=== PATIENT | male | born 1955 | race Caucasian/White ===

== ENCOUNTER 2021-08-15 03:00 | Emergency (ER) | payer MEDICAID, SELFPAY ==
[2021-08-15 03:01] VITALS: BP 178/94; PULSE 113; RESP 20; TEMP 36.7; O2SAT 94; BMI 29.7
--- NOTE | 2021-08-15 03:28 | XR_ITS ---
PROCEDURE INFORMATION: Exam: XR Chest Exam date and time: 08/15/2021 3:28 AM Age: 65 years old Clinical indication: Patient HX: PT got into coughing fit and caused pain down left leg; Additional info: Cough TECHNIQUE: Imaging protocol: XR of the chest. Views: 2 views. COMPARISON: No relevant prior studies available. FINDINGS: Lungs: There are chronic parenchymal changes identified within both lung tirado, suggesting pulmonary emphysema. No consolidation. Pleural spaces: Unremarkable. No pleural effusion. No pneumothorax. Heart/Mediastinum: Unremarkable. No cardiomegaly. Bones/joints: Mild degenerative changes of the thoracic spine and shoulders. IMPRESSION: No evidence of acute intrathoracic disease.
--- NOTE | 2021-08-15 03:28 | XR_ITS ---
PROCEDURE INFORMATION: Exam: XR Left Hip Exam date and time: 08/15/2021 3:28 AM Age: 65 years old Clinical indication: Hip pain; Left hip; Patient HX: Pain and numbness down lateral part of left leg for 3 days after having a coughing fit TECHNIQUE: Imaging protocol: XR Left hip. Views: 2 or 3 views hip with pelvis when performed. COMPARISON: No relevant prior studies available. FINDINGS: Bones/joints: Unremarkable. No acute fracture. Soft tissues: Unremarkable. IMPRESSION: No acute findings.
[2021-08-15 03:47] LABS: Coronavirus 19, PCR Not Detected (NotDetected); Influenza B, PCR Not Detected (NotDetected); Microscopic, Urine URINE MICROSCOPIC (MICROSCOPIC)
[2021-08-15 03:48] LABS: Basophils % 0.5 % (0.1-2.0); Eosinophils % 0.5 % (0.1-12.0); Hematocrit 48.9 % (42.0-52.0); Hemoglobin 16.8 g/dL (14.1-18.0); Lymphocytes # 0.9 K/mm3 (0.7-4.5); Lymphocytes % 17.1 % (10-50); Mean Corpuscular HGB Conc 34.4 g/dL (31.8-35.4); Mean Corpuscular Hemoglobin 30.8 pg (27.0-31.2); Mean Corpuscular Volume 89.7 fl (80-94); Mean Platelet Volume 8.8 fl (7.4-10.4); Monocytes # 0.3 K/mm3 (0.1-1.0); Monocytes % 5.9 % (1.7-9.3); Neutrophils # 4.1 K/mm3 (1.8-7.8); Neutrophils % 76.1 % (37.0-80.0); Platelet Count 156 K/mm3 (142-424); Red Blood Count 5.45 M/mm3 (4.60-6.20); Red Cell Distribution Width 13.7 % (11.5-17.5); White Blood Count 5.4 K/mm3 (4.8-10.8)
--- NOTE | 2021-08-15 03:52 | HMH.EDBACK ---
ED Disposition Clinical Impression: Flu, Lumbar radicular pain COPD (chronic obstructive pulmonary disease) Qualifiers: COPD type: unspecified COPD Qualified Code(s): J44.9 - Chronic obstructive pulmonary disease, unspecified Disposition: Home, Self-Care Condition on Discharge: Good Instructions: DI for Lumbar Radiculopathy Additional Instructions: use meds and call pcp for follow up Prescriptions: predniSONE [Prednisone 20mg Tab] 20 mg PO BID #10 tab Transmission Status: Pending to [facility] # Oseltamivir Phosphate [Tamiflu 75mg Capsule] 75 mg PO BID #10 cap Transmission Status: Pending to [facility] # Referrals: Provider,Referral, [Primary Care Provider] - - Critical Care Critical Care Time: No Attestation: On 08/15/21, the high probability of a clinically significant, sudden or life threatening deterioration of the following system(s) required my full and direct attention, intervention and personal management. The time I documented below is in addition to time spent performing reported procedures but includes the following listed in this critical care notation. Medical Decision Making - Medical Records Medical records reviewed: Yes: I reviewed the patient's medical records. - Berry Inquiry Pt receiving controlled substance: No Vital Signs: 08/15/21 03:01 Temperature 98.0 F Temperature Source Oral Pulse Rate [Apical] 113 H Respiratory Rate 20 Blood Pressure [Right Arm] 178/94 H Blood Pressure Mean [Right Arm] 122 Blood Pressure Source [Right Arm] Automatic Cuff Blood Pressure Position [Right Arm] Sitting 02 Sat by Pulse Oximetry 94 L Oxygen Delivery Method Room Air - Lab Data Lab results reviewed: Yes: I reviewed the patient's lab results. Lab Results 08/15/21 03:35: WBC 5.4, RBC 5.45, Hgb 16.8, Hct 48.9, MCV 89.7, MCH 30.8, MCHC 34.4, RDW 13.7, Plt Count 156, MPV 8.8, Neut % (Auto) 76.1, Lymph % (Auto) 17.1, Payne % (Auto) 5.9, Eos % (Auto) 0.5, Baso % (Auto) 0.5, Neut # (Auto) 4.1, Lymph # (Auto) 0.9, Payne # (Auto) 0.3, Eos # (Auto) 0.0, Baso # (Auto) 0.0, ESR 17 08/15/21 03:35: Sodium 135 L, Potassium 3.9, Chloride 101, Carbon Dioxide 27, Anion Gap 10.9, BUN 11, Creatinine 0.60 L, Estimated Creat Clear 90, Estimated GFR 135, Est GFR ( Amer) 164, Glucose 163 H, Calcium 9.6, Total Bilirubin 0.5, AST 58, ALT 53, Alkaline Phosphatase 51, C-Reactive Protein 6.9 H, Total Protein 7.6, Albumin 4.5, Globulin 3.1, Albumin/Globulin Ratio 1.5, Procalcitonin 0.083 08/15/21 03:40: Urine Color Yellow, Urine Appearance Clear, Urine pH 7.0, Ur Specific [place]on 1.020, Urine Protein 1+, Urine Glucose (UA) Negative, Urine Ketones 2+, Urine Blood Negative, Urine Nitrate Negative, Urine Bilirubin Negative, Urine Urobilinogen 0.2, Ur Leukocyte Esterase Negative, Urine WBC Occasional, Ur Squamous Epith Cells Occasional, Urine Bacteria Trace 08/15/21 03:40: SARS-CoV-2 (PCR) Not detected, Influenza A Untype (PCR) Detected A, Influenza Type B (PCR) Not detected Result diagrams: 08/15/21 03:35 08/15/21 03:35 Orders (Tests/Meds): ED MEDICATIONS Discontinued Medications Generic Name Dose Route Start Last Admin Trade Name Freq PRN Reason Stop Dose Admin Ketorolac Tromethamine 30 mg 08/15/21 03:52 08/15/21 03:58 Ketorolac 30mg/Ml Vial IV 08/15/21 03:53 30 mg ONCE ONE Administration Methocarbamol 500 mg 08/15/21 09:00 Methocarbamol 500mg Tablet PO 09/14/21 08:59 BID FORD Methocarbamol 500 mg 08/15/21 05:17 08/15/21 05:18 Methocarbamol 500mg Tablet PO 08/15/21 05:18 500 mg ONCE STA Administration Methylprednisolone Sodium Succinate 125 mg 08/15/21 03:52 08/15/21 03:58 Methylprednisolone Sod Succ 125mg Vial IV 08/15/21 03:53 125 mg ONCE ONE Administration - Radiology Data #1 Image(s): Chest, Pelvis, Hip Image Reviewed: Yes I have reviewed radiologist's interpretation Preliminary Findings: No Fracture Seen
--- NOTE | 2021-08-15 03:53 | CT_ITS ---
PROCEDURE INFORMATION: Exam: CT Lumbar Spine Without Contrast Exam date and time: 08/15/2021 3:53 AM Age: 65 years old Clinical indication: Patient HX: Low back pain after coughing a few days ago TECHNIQUE: Imaging protocol: Computed tomography images of the lumbar spine without contrast. Radiation optimization: All CT scans at this facility use at least one of these dose optimization techniques: automated exposure control; mA and/or kV adjustment per patient size (includes targeted exams where dose is matched to clinical indication); or iterative reconstruction. COMPARISON: CR XR HIP LT 2-3V W/PELVIS 08/15/2021 3:37 AM FINDINGS: Vertebrae: No acute fracture. Normal alignment. Anterior osteophyte formation is noted at L1-L2 and L3-L4. L1-L2: No significant disc protrusion. No spinal canal stenosis. No significant neural foraminal narrowing. L2-L3: No significant disc protrusion. No spinal canal stenosis. No significant neural foraminal narrowing. L3-L4: No significant disc protrusion. There is mild bilateral facet degeneration. Ligamentum flavum hypertrophy is identified. There is mild central canal stenosis. No significant neural foraminal narrowing. L4-L5: No significant disc protrusion. Posterior annular bulging is noted. There is mild bilateral facet degeneration. Ligamentum flavum hypertrophy is identified. There is moderate central canal stenosis. There is moderate central canal stenosis. No significant neural foraminal narrowing. L5-S1: No significant disc protrusion. Mild bilateral facet degeneration. No evidence of central canal stenosis. No significant neural foraminal narrowing. Soft tissues: Arterial atheromatous calcifications are noted. No evidence of paraspinal mass. IMPRESSION: Osteoarthritis of the lumbar spine, as described. There is mild central canal stenosis at L3-L4 and moderate central canal stenosis at L4-L5.
--- NOTE | 2021-08-15 04:03 | CT_ITS ---
PROCEDURE INFORMATION: Exam: CT Thoracic Spine Without Contrast Exam date and time: 08/15/2021 4:03 AM Age: 65 years old Clinical indication: Pain in thoracic spine; Patient HX: Back pain after coughing a few days ago TECHNIQUE: Imaging protocol: Computed tomography images of the thoracic spine without contrast. Radiation optimization: All CT scans at this facility use at least one of these dose optimization techniques: automated exposure control; mA and/or kV adjustment per patient size (includes targeted exams where dose is matched to clinical indication); or iterative reconstruction. COMPARISON: CR XR CHEST 2V 08/15/2021 3:34 AM FINDINGS: Vertebrae: No acute fracture. Normal alignment. Discs/Spinal canal/Neural foramina: There is a pattern of mild diffuse degenerative changes noted throughout the thoracic spine. No evidence of central canal stenosis. Exit foramina are patent throughout the thoracic spine. Soft tissues: Arterial atheromatous calcifications are noted. No evidence of paraspinal mass. Emphysematous changes are noted within both lung tirado. IMPRESSION: No evidence of acute fracture or malalignment. Mild diffuse degenerative changes are noted. Pulmonary emphysema is identified.
[2021-08-15 04:07] LABS: Appearance,Urine CLEAR (Clear); Bilirubin,Urine Negative (Negative); Blood, Urine Negative (Negative); Color,Urine YELLOW (Yellow); Glucose,Urine (UA) Negative (Negative); Ketones,Urine 2+ (Negative); Leukocyte Esterase,Urine Negative (Negative); Nitrate,Urine Negative (Negative); Protein,Urine 1+ (Negative); Urobilinogen,Urine 0.2 EU/dl (0.2)
[2021-08-15 04:10] LABS: Influenza A, PCR Detected (NotDetected)
[2021-08-15 04:11] LABS: Alanine Aminotransferase 53 U/L (12-78); Albumin Level 4.5 g/dl (3.5-5.0); Albumin/Globulin Ratio 1.5 (1.1-1.8); Alkaline Phosphatase 51 U/L (38-126); Anion Gap 10.9 mEq/L (5-15); Aspartate Amino Transferase 58 U/L (17-59); Bilirubin,Total 0.5 mg/dl (0.2-1.3); Blood Urea Nitrogen 11 mg/dl (9-20); Calcium 9.6 mg/dl (8.4-10.2); Carbon Dioxide 27 mmol/L (22.0-30.0); Chloride 101 mmol/L (98-107); Creatinine Clearance Estimated 90 mL/min (50-200); Estimated Glomerular Filt Rate 135 ml/min (>60); GFR (African American) 164 ML/MIN (>60); Globulin 3.1 g/dL (1.3-3.2); Glucose 163 mg/dl (74-100); Potassium 3.9 mmoL/L (3.5-5.1); Sodium 135 mmol/L (136-145); Total Protein,Serum 7.6 g/dl (6.3-8.2)
[2021-08-15 04:16] LABS: C-Reactive Protein 6.9 mg/L (0-4)
[2021-08-15 04:17] LABS: Bacteria,Urine Trace /lpf; Squamous Epithelial Cell,Urine Occasional #/hpf (0-5); WBC,Urine Occasional #/hpf (0-3)
[2021-08-15 04:19] LABS: Erythrocyte Sedimentation Rate 17 mm/hr (0-20)
[2021-08-15 04:30] LABS: Procalcitonin 0.083 ng/mL (0.0-2.0)
[2021-08-15 05:53] VITALS: BP 144/94; PULSE 110; RESP 18; TEMP 36.7; O2SAT 98
== END 2021-08-15 05:56 | disposition home or self-care (01) ==
PROVIDERS: Emergency Provider Emergency Medicine
DX: M54.16 Radiculopathy, lumbar region (principal); J44.9 Chronic obstructive pulmonary disease, unspecified; J10.1 Influenza due to other identified influenza virus with other respiratory manifestations
CPT/HCPCS: 71046; 72128; 72131; 73502; 80053; 81001; 84145; 85025; 85651; 86140; 96372; 96374; 99283; C9803; U0003; U0005

== ENCOUNTER → 2021-08-29 19:15 | Outpatient (CLI) | payer MEDICAID, SELFPAY ==
[2021-08-29 19:34] LABS: Chol/HDL Ratio 4.1 (1-3.5); Cholesterol 186 mg/dl (140-200); HDL Cholesterol 45 mg/dl (40-60); Triglycerides 156 mg/dl (30-150); VLDL Cholesterol 31 mg/dL (0-40)
[2021-08-29 19:45] LABS: Direct LDL Cholesterol 119.15 mg/dL (100-129)
[2021-08-29 19:46] LABS: Hemoglobin A1C 6.3 % (4.0-6.0)
[2021-08-29 19:53] LABS: T4 (Thyroxine) 7.8 ug/dl (5.53-11.0)
[2021-08-29 19:54] LABS: 25-OH Vitamin D, Total 32.3 ng/mL (30-100)
[2021-08-29 20:07] LABS: Prostate Specific Ag Screen 9.1 ng/ml (0.0-4.0)
== END ==
PROVIDERS: Visit Provider Nurse Practitioner Family
DX: R73.09 Other abnormal glucose (principal); R53.83 Other fatigue; Z12.5 Encounter for screening for malignant neoplasm of prostate; E66.3 Overweight; Z68.29 Body mass index [BMI] 29.0-29.9, adult
CPT/HCPCS: 80061; 82306; 83036; 84436; 84443; G0103

== ENCOUNTER → 2021-09-13 07:42 | Outpatient (CLI) | payer MEDICAID, SELFPAY ==
--- NOTE | 2021-09-13 07:45 | US_ITS ---
APPROVED REPORT Exam Type: Lower Extremity Segmental Pressures Cripple Cutter: Rina Bazan, MECH[employer]ICAL PRODUCT ENGINEER Indications Current Smoker Risk Factors Diabetes Pressures/Indices Right Indices Left Indices Brachial 136.00 mmHg Brachial 142.00 mmHg Low Thigh 140.00 mmHg 0.99 Low Thigh 96.00 mmHg 0.68 Calf 147.00 mmHg 1.04 Calf 99.00 mmHg 0.70 Ankle(PT) 149.00 mmHg 1.05 Ankle(PT) 96.00 mmHg 0.68 Ankle(DP) 141.00 mmHg 0.99 Ankle(DP) 118.00 mmHg 0.83 Digit 101.00 mmHg 0.71 Digit 75.00 mmHg 0.53 Findings R MAURA 1.1 L MAURA 0.8 R TBI 0.7 L TBI 0.5 Diminished waveforms in the LLE and pulses. Conclusion R MAURA 1.1 L MAURA 0.8 R TBI 0.7 L TBI 0.5 Diminished waveforms in the LLE and pulses. Mild arterial disease left lower extremity. Electronically signed by : Kehinde Kim MD 09/13/2021 14:54:51
== END ==
PROVIDERS: PCP Nurse Practitioner Family; Visit Provider Urology
DX: R07.89 Other chest pain (principal); I73.9 Peripheral vascular disease, unspecified; Z72.0 Tobacco use
CPT/HCPCS: 93306; 93923

== ENCOUNTER 2021-10-02 08:46 | Day surgery (SDC) | payer MEDICAID, SELFPAY ==
[2021-10-02] VITALS (7 sets, daily range): BP systolic 111–157; BP diastolic 70–97; PULSE 74–90; RESP 18–20; TEMP 36.6; O2SAT 90–98; BMI 31.0
--- NOTE | 2021-10-02 07:05 | IR_ITS ---
APPROVED REPORT Patient Location: Outpatient [facility] Cutter: BRYSON Allen RT (R) PROCEDURES Catheter placed in the abdominal aorta Abdominal aortography Repositioning of the catheter in the abdominal aorta Bilateral iliofemoral runoff Catheter placement in the left popliteal artery Left popliteal artery selective angiogram Drug-coated balloon angioplasty to the left popliteal artery and left superficial femoral artery Post angioplasty left superficial femoral artery and left popliteal artery angiogram INDICATION [place] claudication class III, Abnormal MAURA, Occluded left superficial femoral artery Informed consent was obtained prior to the procedure. COMPLICATIONS NONE Estimated Blood Loss: LESS THAN 10 ML TECHNIQUE 1% lidocaine used anesthetize the right groin the right femoral artery was accessed via the sounder technique and a 4 Gambian sheath is placed in the right femoral artery. The pigtail catheter was placed in the abdominal aorta and abdominal aortography was performed. The catheter was then repositioned and bilateral iliofemoral runoff was performed. Following this therapeutic heparin was administered and the 4 Gambian sheath was exchanged for a 6 Gambian sheath followed by a rim catheter placed in the distal abdominal aorta and used to cannulate the left common iliac artery. An advantage wire was then advanced into the left superficial femoral artery. The short 6 Gambian sheath was exchanged for a long destination sheath. The wire was prolapsed and then used to push through the chronic occlusion and reenter the left popliteal artery. The 5 mm x 100 mm balloon was then advanced through the occlusion and the wire was removed and selective angiography was performed of the left popliteal artery. Following this the balloon was deployed at 10 nithin on 2 occasions to reduce the occlusion. Following this a 6 mm x 250 mm drug-coated balloon was deployed at 5 nithin for 3 minutes reducing the stenosis to less than 10%. Post angioplasty angiography demonstrated wide patency of the left superficial femoral artery with excellent inline flow into the popliteal artery. At the end of the procedure the apparatus was removed the groin was reprepped gloves were changed sheath was removed good hemostasis was achieved using Perclose device patient was transferred to the postop holding area in stable condition ANGIOGRAPHIC RESULTS Abdominal aorta is widely patent The bilateral common internal and external iliac arteries are widely patent The bilateral common femoral arteries are patent The bilateral profunda femoris arteries are patent The right superficial femoral artery is widely patent and has a distal eccentric 40% stenosis at the junction of the popliteal artery. The right popliteal artery is widely patent with three-vessel runoff below the knee on the right The left superficial femoral artery is patent in proximal segment and then occluded at mid segment and then reconstitutes in the mid popliteal artery via collaterals from the profundus. Below the knee there is three-vessel runoff IMPRESSION Chronically occluded left superficial femoral artery Successful drug-coated balloon angioplasty of the left popliteal artery extending into the left superficial femoral artery reducing the 100% occlusion to less than 10% PLAN 1. Xarelto 2.5 twice daily plus aspirin 81 mg daily to be started today 2. Immediate avoidance of all tobacco products 3. LDL less than 55 to be achieved with high intensity statin 4. Risk factor modification 5. Evaluation for ischemic heart disease given the severity of the peripheral artery disease Electronically signed by : Sohan Stephen MD 10/02/2021
[2021-10-02 09:29] LABS: Coronavirus 19, PCR Not Detected (NotDetected); Influenza A, PCR Not Detected (NotDetected); Influenza B, PCR Not Detected (NotDetected)
[2021-10-02 09:33] LABS: Basophils # 0.1 K/mm3 (0-0.2); Basophils % 1.9 % (0.1-2.0); Eosinophils # 0.2 K/mm3 (0.0-0.4); Eosinophils % 3.3 % (0.1-12.0); Hematocrit 51.8 % (42.0-52.0); Hemoglobin 16.8 g/dL (14.1-18.0); Lymphocytes # 2.9 K/mm3 (0.7-4.5); Lymphocytes % 40.1 % (10-50); Mean Corpuscular HGB Conc 32.4 g/dL (31.8-35.4); Mean Corpuscular Hemoglobin 31.3 pg (27.0-31.2); Mean Corpuscular Volume 96.5 fl (80-94); Mean Platelet Volume 8.4 fl (7.4-10.4); Monocytes # 0.5 K/mm3 (0.1-1.0); Monocytes % 6.8 % (1.7-9.3); Neutrophils # 3.5 K/mm3 (1.8-7.8); Neutrophils % 47.8 % (37.0-80.0); Platelet Count 214 K/mm3 (142-424); Red Blood Count 5.37 M/mm3 (4.60-6.20); Red Cell Distribution Width 14.4 % (11.5-17.5); White Blood Count 7.3 K/mm3 (4.8-10.8)
[2021-10-02 10:02] LABS: Hematocrit 51.3 % (42.0-52.0); Hemoglobin 16.5 g/dL (14.1-18.0)
[2021-10-02 11:44] LABS: Chloride 105 mmol/L (98-107); Sodium 136 mmol/L (136-145)
[2021-10-02 11:47] LABS: Blood Urea Nitrogen 13 mg/dl (9-20); Calcium 9.6 mg/dl (8.4-10.2); Carbon Dioxide 26 mmol/L (22.0-30.0); Creatinine Clearance Estimated 92 mL/min (50-200); Estimated Glomerular Filt Rate 97 ml/min (>60); GFR (African American) 117 ML/MIN (>60); Glucose 98 mg/dl (74-100)
[2021-10-02 13:46] LABS: CATHL Activated Clotting Time 263 SEC (74-125)
== END 2021-10-02 15:23 | disposition home or self-care (01) ==
PROVIDERS: Nurse Practitioner Family; PCP Nurse Practitioner Family; Visit Provider Internal Medicine
DX: Z79.01 Long term (current) use of anticoagulants (principal); I70.212 Atherosclerosis of native arteries of extremities with intermittent claudication, left leg; F17.210 Nicotine dependence, cigarettes, uncomplicated; J44.9 Chronic obstructive pulmonary disease, unspecified; I77.1 Stricture of artery; Z20.822 Contact with and (suspected) exposure to COVID-19
CPT/HCPCS: 37224; 80048; 85014; 85018; 85025; 85347; 99152; 99153; C1725; C1760; C1766; C1769; C1894; C9803; J1644; Q9966; U0003; U0005

== ENCOUNTER → 2021-11-01 11:00 | Outpatient (CLI) | payer MEDICAID, SELFPAY ==
[2021-11-02 11:29] LABS: PSA, Free 2.07 ng/mL; Prostate Specific Ag 9.7 ng/mL (0.0-4.0)
== END ==
PROVIDERS: Visit Provider Urology
DX: R97.20 Elevated prostate specific antigen [PSA] (principal)
CPT/HCPCS: 36415; 84153; 84154

== ENCOUNTER 2021-11-05 09:49 | Outpatient (RCR) | payer MEDICAID, SELFPAY | END 2021-11-05 09:55 | disposition home or self-care (01) | LOC: PT 09:49 | PROVIDERS: Visit Provider Internal Medicine | DX: I73.9 Peripheral vascular disease, unspecified (principal) | CPT/HCPCS: 93668 ==

== ENCOUNTER → 2021-11-22 12:48 | Outpatient (POV) | payer MEDICAID, MEDICARE, SELFPAY ==
[2021-11-22 13:06] VITALS: BP 146/87; PULSE 80; RESP 20; TEMP 36.2; O2SAT 96; BMI 30.8
--- NOTE | 2021-11-22 15:53 | HMH.PMCON ---
Assessment and Plan (1) Degenerative disc disease, lumbar Status: Acute Category: Medical Code(s): M51.36 - Other intervertebral disc degeneration, lumbar region (2) Sacroiliitis Status: Acute Category: Medical Code(s): M46.1 - Sacroiliitis, not elsewhere classified (3) Lumbar radicular pain Status: Acute Category: Medical Code(s): M54.16 - Radiculopathy, lumbar region - Assessment and plan all Dx Assessment and Plan for all problems:: PROCEDURE INFORMATION: Exam: CT Lumbar Spine Without Contrast Exam date and time: 08/15/2021 3:53 AM Age: 65 years old Clinical indication: Patient HX: Low back pain after coughing a few days ago TECHNIQUE: Imaging protocol: Computed tomography images of the lumbar spine without contrast. Radiation optimization: All CT scans at this facility use at least one of these dose optimization techniques: automated exposure control; mA and/or kV adjustment per patient size (includes targeted exams where dose is matched to clinical indication); or iterative reconstruction. COMPARISON: CR XR HIP LT 2-3V W/PELVIS 08/15/2021 3:37 AM FINDINGS: Vertebrae: No acute fracture. Normal alignment. Anterior osteophyte formation is noted at L1-L2 and L3-L4. L1-L2: No significant disc protrusion. No spinal canal stenosis. No significant neural foraminal narrowing. L2-L3: No significant disc protrusion. No spinal canal stenosis. No significant neural foraminal narrowing. L3-L4: No significant disc protrusion. There is mild bilateral facet degeneration. Ligamentum flavum hypertrophy is identified. There is mild central canal stenosis. No significant neural foraminal narrowing. L4-L5: No significant disc protrusion. Posterior annular bulging is noted. There is mild bilateral facet degeneration. Ligamentum flavum hypertrophy is identified. There is moderate central canal stenosis. There is moderate central canal stenosis. No significant neural foraminal narrowing. L5-S1: No significant disc protrusion. Mild bilateral facet degeneration. No evidence of central canal stenosis. No significant neural foraminal narrowing. Soft tissues: Arterial atheromatous calcifications are noted. No evidence of paraspinal mass. IMPRESSION: Osteoarthritis of the lumbar spine, as described. There is mild central canal stenosis at L3-L4 and moderate central canal stenosis at L4-L5. Patient is a pleasant 66-year-old male who presents today as a new patient. Patient has been having chronic low back pain for several years that has gotten worse in the last 2 to 3 years. Patient presents today with a low back pain that radiates to bilateral hips and thighs but does not cross his knees. Patient has positive for MIKE, Jaye's, compression, and distraction. For pain management, patient is not taking any pain medication right now other than Tylenol and Advil. Patient is also doing physical therapy that is helping some of his pain. We will schedule the patient for a bilateral SI injection. Risk and benefits of these procedures been discussed with the patient. Patient would like to proceed with this procedure. If patient does not get any relief from this procedure, we will consider doing a lumbar epidural steroid injection with epidurogram. Patient has been instructed to contact the clinic with any concerns before the next appointment. Dr. Thomason has reviewed this note and agrees with this plan of care. This note was dictated using voice recognition software and make contain errors or omissions. HPI - Data of Consult Patient: new to practice Consult date: 11/22/21 Requesting Physician: THOMPSON Sunshine - Consult Narrative Reason for consult: Back pain History of present illness: Mr. Smith is a 66 year old male who presents today as a new patient. Patient is referred by Chelsie Pinedo APRN. Th
== END ==
PROVIDERS: Visit Provider Student in an Organized Health Care Education/Training Program
DX: M51.16 Intervertebral disc disorders with radiculopathy, lumbar region (principal); M46.1 Sacroiliitis, not elsewhere classified
CPT/HCPCS: 99202; G0463

== ENCOUNTER 2021-11-30 13:34 | Day surgery (SDC) | payer MEDICAID, SELFPAY ==
[2021-11-30 13:49] VITALS: BP 144/81; BP 160/74; BP 162/75; PULSE 80; PULSE 93; PULSE 95; RESP 18; RESP 20; TEMP 36.2; O2SAT 95; O2SAT 96; O2SAT 98; BMI 29.7
--- NOTE | 2021-11-30 14:00 | P.PCN_ITS ---
- Procedure Date: 11/30/21 Time: 14:00 Anesthesiologist:: Dio Thomason MD Complications:: None Pre-procedure Diagnosis:: Sacroiliitis Post-procedure Diagnosis:: Same Indications for Procedure:: Patient is a pleasant 66-year-old white male who we are treating for bilateral hip pain. He is tender over both SI joints. He has a positive Susanne's test bilaterally. Is positive Arlene test bilaterally. He has positive SI joint compression test bilaterally. We will plan on bilateral SI joint injections under fluoroscopy today to help with pain symptoms. Procedure Details:: B/L SI joint injection under fluoroscopy Informed consent was obtained and the risks and benefits of the procedure was explained to the patient. The patient was taken to the procedure room and placed prone on the procedure table. The patient was prepped using ChloraPrep. The skin and subcutaneous tissues overlying the SI joints were anesthetized using lidocaine. I placed a 22-gauge needle first in the left SI joint and second in the right SI joint. Needle placement was confirmed with dye. After this we injected 5 mL bupivacaine 0.25% and Depo-Medrol 40 mg into each SI fred nt. Patient tolerated the procedure well with no complication. Plan and Disposition:: We will follow-up with him in 2 weeks. Will reevaluate his symptoms at that time.
[2021-11-30 14:05] VITALS: BP 149/81; PULSE 89; RESP 20; O2SAT 96
== END 2021-11-30 14:05 | disposition home or self-care (01) ==
LOC: SC.PAINP 13:35
PROVIDERS: PCP Nurse Practitioner Family; Visit Provider Anesthesiology
DX: M46.1 Sacroiliitis, not elsewhere classified (principal)
CPT/HCPCS: 27096; G0260; Q9966

== ENCOUNTER → 2022-03-19 14:33 | Outpatient (CLI) | payer MEDICARE, MEDICAID, SELFPAY ==
--- NOTE | 2022-03-19 14:41 | XR_ITS ---
FINAL REPORT CLINICAL HISTORY: knee pain FINDINGS: LEFT KNEE Three views were obtained. There is no acute fracture or dislocation. The joint spaces appear normal. No joint effusion is identified. No soft tissue abnormality is identified. IMPRESSION: No acute process. Reviewed, Interpreted and Dictated by Mayito Magana III, MD Transcribed by Jennifer Gillespie Authenticated and [facility]
== END ==
PROVIDERS: PCP Nurse Practitioner Family; Visit Provider Orthopaedic Surgery
DX: M25.562 Pain in left knee (principal)
CPT/HCPCS: 73564

== ENCOUNTER → 2022-04-23 08:03 | Outpatient (POV) | payer MEDICARE, SELFPAY | PROVIDERS: Visit Provider Dermatology | DX: Z00.00 Encounter for general adult medical examination without abnormal findings (principal) ==

== ENCOUNTER → 2022-04-23 09:25 | Outpatient (CLI) | payer MEDICARE, MEDICAID, SELFPAY ==
--- NOTE | 2022-04-23 09:25 | CT_ITS ---
FINAL REPORT CLINICAL HISTORY: PAD, claudication, FINDINGS: Thin section axial CT images of the abdomen, pelvis and lower extremities were obtained with contrast. Multiplanar reformatted images were also obtained and reviewed. ABDOMEN AND PELVIS: There is no abdominal aortic aneurysm or dissection. The celiac axis and proximal superior mesenteric artery are unremarkable. There is no renal artery stenosis. The inferior mesenteric artery is patent. There is mild stenoses in both common iliac arteries. The external iliac arteries are patent. The internal iliac arteries are patent. RIGHT LOWER EXTREMITY: There is mild stenosis of the proximal SFA. There is segmental occlusion of the distal SFA with reconstitution distally. The right popliteal artery is patent. There is occlusion of the distal for neural arteries. The anterior tibial and posterior tibial arteries are patent to the ankle. LEFT LOWER EXTREMITY: There is mild stenosis of the SFA. The left popliteal artery is patent. There is three-vessel runoff to the distal lower leg. OTHER FINDINGS: Note is made of gallstones. There is a less than 3 mm nonobstructing right renal stone. The appendix is normal. There is sigmoid diverticulosis without evidence of diverticulitis. IMPRESSION: Segmental occlusion of the distal right SFA. Occlusion of the distal right peroneal artery. Reviewed, Interpreted and Dictated by Mayito Magana III, MD Transcribed by Jennifer Gillespie Authenticated and [facility]
[2022-04-23 10:04] LABS: Blood Urea Nitrogen 13 mg/dl (9-20); Estimated Glomerular Filt Rate 97 ml/min (>60); GFR (African American) 117 ML/MIN (>60)
== END ==
PROVIDERS: PCP Nurse Practitioner Family; Visit Provider Physician Assistant
DX: I73.9 Peripheral vascular disease, unspecified (principal); J44.9 Chronic obstructive pulmonary disease, unspecified; R09.89 Other specified symptoms and signs involving the circulatory and respiratory systems; R20.0 Anesthesia of skin; Z72.0 Tobacco use
CPT/HCPCS: 36415; 75635; 82565; 84520; Q9967

== ENCOUNTER → 2022-06-04 07:57 | Outpatient (POV) | payer MEDICARE, SELFPAY | PROVIDERS: Visit Provider Dermatology | DX: Z00.00 Encounter for general adult medical examination without abnormal findings (principal) ==

== ENCOUNTER 2023-04-29 08:27 | Day surgery (SDC) | payer MEDICARE, MEDICAID, SELFPAY ==
[2023-04-29] VITALS (9 sets, daily range): BP systolic 125–178; BP diastolic 42–86; PULSE 68–93; RESP 15–19; TEMP 37; O2SAT 90–98; BMI 29.4
--- NOTE | 2023-04-29 07:03 | IR_ITS ---
APPROVED REPORT Patient Location: Outpatient PROCEDURES Pigtail catheter placement in the abdominal aorta Abdominal aortography Repositioning of the catheter abdominal aorta Bilateral iliofemoral runoff Bare-metal balloon mounted stent deployment to the left common iliac artery Bare-metal balloon mounted stent deployment to the right common iliac artery INDICATION Abnormal MAURA, Atherosclerosis of the bilateral common iliac arteries, [place] claudication class III Informed consent was obtained prior to the procedure. COMPLICATIONS None Estimated Blood Loss: Less than 10 ml TECHNIQUE 1% lidocaine used anesthetize right groin the right pulm artery was accessed via the center technique and a 5 Portuguese sheath is placed in the right femoral artery. A pigtail catheter was advanced to the abdominal aorta and abdominal aortography was performed. The catheter was then repositioned and bilateral iliofemoral runoff was performed. Following this a rim catheter was advanced to the distal abdominal aorta and used to cannulate the left common iliac artery. A long advantage wire was then advanced into the left superficial femoral artery under fluoroscopic guidance. The 5 Portuguese sheath was exchanged for a 45 cm destination sheath. Heparin was ministered given therapeutic ACT. An 8 mm x 57 mm balloon mounted bare-metal stent was deployed at 12 nithin in the distal left common iliac artery. An additional 8 mm x 27 mm balloon mounted bare-metal stent was then deployed proximal to this overlapping the first stent at 12 nithin completely reducing the stenosis to 0%. The apparatus was removed and an additional 8 mm x 57 mm balloon mounted bare-metal stent was deployed at 10 nithin in the right common iliac artery reducing the stenosis. Excellent angiographic results were obtained. At the end of procedure the apparatus was removed the groin was reprepped gloves were changed sheath was removed and hemostasis was achieved using Perclose device patient was transferred to the postop putting in stable condition ANGIOGRAPHIC RESULTS Distal abdominal aorta is widely patent Right common iliac artery has a concentric 80% stenosis. Right internal iliac arteries patent as is the right external iliac artery Right profunda femoris artery is widely patent right common femoral arteries patent. Right superficial femoral artery is widely patent. The proximal to mid popliteal artery is occluded and reconstitutes in the mid popliteal artery and then provides three-vessel runoff below the knee on the right side Left common iliac artery has a calcified 70% stenosis followed by mid vessel eccentric 50% stenosis. The left internal and external iliac arteries are patent as is the left common femoral artery. The left profunda femoris artery is patent. The left superficial femoral artery is mild atheromatous plaque and is patent into the popliteal artery where there are 30 to 40% stenoses. 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 Dual antiplatelet therapy for 1 month then convert to Xarelto 2.5 twice daily plus aspirin 81 mg daily 2. LDL less than 55 to be achieved with high intensity statin 3. Consider cardiac ischemic work-up if not already completed 4. Risk factor modification 5. For the time being I would like to treat the right popliteal artery occlusion medically. Should patient experience recalcitrant claudication only th
[2023-04-29 08:53] LABS: Basophils # 0.1 K/mm3 (0-0.2); Basophils % 0.9 % (0.1-2.0); Eosinophils # 0.2 K/mm3 (0.0-0.4); Eosinophils % 2.7 % (0.1-12.0); Hematocrit 54.2 % (42.0-52.0); Hemoglobin 17.4 g/dL (14.1-18.0); Lymphocytes % 37.9 % (10-50); Mean Corpuscular HGB Conc 32.1 g/dL (31.8-35.4); Mean Corpuscular Hemoglobin 30.3 pg (27.0-31.2); Mean Corpuscular Volume 94.6 fl (80-94); Mean Platelet Volume 8.5 fl (7.4-10.4); Monocytes # 0.6 K/mm3 (0.1-1.0); Monocytes % 7.5 % (1.7-9.3); Neutrophils % 50.9 % (37.0-80.0); Platelet Count 158 K/mm3 (142-424); Red Blood Count 5.73 M/mm3 (4.60-6.20); Red Cell Distribution Width 13.9 % (11.5-17.5); White Blood Count 7.8 K/mm3 (4.8-10.8)
[2023-04-29 09:04] LABS: Blood Urea Nitrogen 12 mg/dl (9-20); Calcium 9.7 mg/dl (8.4-10.2); Carbon Dioxide 30 mmol/L (22.0-30.0); Chloride 102 mmol/L (98-107); Creatinine Clearance Estimated 86 mL/min (50-200); Estimated Glomerular Filt Rate 96 ml/min (>60); GFR (African American) 117 ML/MIN (>60); Glucose 108 mg/dl (74-100); Sodium 143 mmol/L (136-145)
[2023-04-29 13:37] LABS: CATHL Activated Clotting Time 293 SEC (74-125)
--- NOTE | 2023-04-29 14:57 | HMH.PHACL ---
PHA Machine Fancy Stitcher Discharge Med Outreach Coordinator: Aniket Smith has received discharge medication counseling on the following medications: ASPIRIN PLAVIX (NEW) XARELTO (NEW) LOSARTAN ATORVASTATIN PATIENT VERBALIZED UNDERSTANDING AND HAD NO QUESTIONS AT THIS TIME. -MICHAEL PRYOR
== END 2023-04-29 14:55 | disposition home or self-care (01) ==
PROVIDERS: PCP Nurse Practitioner Family; Visit Provider Internal Medicine
DX: I10 Essential (primary) hypertension (principal); J44.9 Chronic obstructive pulmonary disease, unspecified; F17.210 Nicotine dependence, cigarettes, uncomplicated; I70.213 Atherosclerosis of native arteries of extremities with intermittent claudication, bilateral legs; Z79.899 Other long term (current) drug therapy; I77.1 Stricture of artery
CPT/HCPCS: 37221; 80048; 85025; 85347; 99152; 99153; C1725; C1760; C1766; C1769; C1876; C1894; J1644; Q9967

== ENCOUNTER → 2023-05-15 07:10 | Outpatient (CLI) | payer MEDICARE, MEDICAID, SELFPAY ==
--- NOTE | 2023-05-15 | CA_ITS ---
APPROVED REPORT Exam: Pharmacologic Technologist: Lela Gordon, Ht: 5 ft 7 in Wt: 185 lbs BSA: 1.96 m2 HR: 82 bpm BP: 135/74 mmHg Rhythm: NSR Indications: SOA, CP Medical History Medical History: HTN, , Hyperlipidemia Medications: Aspirin,,,,, Losartan,,,,, HCTZ,,,,, XaRELTO,,,,, Lipitor,,,,, Plavix,,,,, Allergies: No known drug allergies Cardiac Risk Factors: HTN, Hyperlipidemia, Smoking Stress Test Details Test: LEXISCAN HR Resting HR: 82 bpm Max Heart Rate (APMHR): 153 bpm Max HR Achieved: 111 bpm Target HR (85% APMHR): 130 bpm % of APMHR: 73 Recovery HR: 97 bpm BP Resting BP: 135/74 mmHg Max BP: 138/66 mmHg Recovery BP: 138.0/66.0 mmHg ECG Resting ECG: NSR, cannot rule out old inferior WI Stress ECG: No significant ST changes Arrhythmia: None Clinical Exercise duration: 04:01 min Highest Stage Achieved: Exercise capacity: 1.0 METs Stress ECG Conclusion PT HAD SOA, AND LIGHTHEADEDNESS NO CP NO SIGNIFICANT ST CHANGES UNREMARKABLE LEXISCAN STRESS TEST MYOVIEW IMAGES REPORTED SEPARATELY Test Summary REST 02:37 . . 82 . 135/ 74 . . Stage 1 01:00 . . 105 . . . . Stage 2 01:00 . . 109 . 127/ 72 . . Stage 3 01:00 . . 106 . 124/ 67 . . Stage 4 01:00 . . 97 . 117/ 68 . . Stage 4 01:01 . . 97 . 117/ 68 . Stop exercise at 04:01 RECOVERY 01:00 . . 100 . 123/ 68 . . RECOVERY 02:00 . . 98 . 123/ 68 . . RECOVERY 03:00 . . 97 . 123/ 68 . . RECOVERY 04:00 . . 94 . 138/ 66 . . RECOVERY 04:14 . . 91 . 138/ 66 . . Electronically signed by : Lori Sanders, 05/19/2023 17:04:56
--- NOTE | 2023-05-15 07:10 | NM_ITS ---
APPROVED REPORT Exam: Nuclear Stress Test Indication: palpitations..fatigue..tobacco use..high cholesterol Patient Location: Outpatient Stress Tech: Lela Gordon [place] Tech:Caitlin Malave ARETHAKeturah RT(R)(N) Ht: 5 ft 7 in Wt: 185 lbs HR: 82 bpm BP: 135/74 mmHg BSA: 1.96 m2 Rhythm: NSR TID: 0.98 BMI: 28.9 History: palpitations..fatigue..tobacco use..high cholesterol Procedure: Patient received 0.4 mg of intravenous Lexiscan, resting heart rate 82 bpm, resting blood pressure 135/74 mmHg, with Lexiscan maximum heart rate achieved was 111 bpm which is 85 % of the maximum predicted heart rate and blood pressure was 138/66 mmHg. With Lexiscan, patient denied any complaint of chest pain. Cardiac Stress and Resting SPECT Images: Cardiac Stress and Resting SPECT images were obtained using technetium 99m Myoview 32.9 mCi stress and 10.37 mCi at rest. Raw images demonstrate significant overlap between the diaphragm and the inferior LV borders. This may affect the diagnostic interpretation of the study findings. Resting and stress imaging in supine position demonstrate a large-sized, moderate, fixed perfusion defect in the inferior LV wall. This is no longer visualized with prone stress imaging. Findings are suggestive of diaphragmatic attenuation. Gated imaging demonstrates low-normal global and regional LV systolic function. LVEF is calculated at 52%. Conclusion: Diaphragmatic attenuation is present. No definite evidence of fixed or reversible perfusion defects. Gated imaging demonstrates low-normal global and regional LV systolic function. LVEF is calculated at 52%. Electronically signed by : Lori Sanders, 05/19/2023 17:17:03
--- NOTE | 2023-05-15 07:32 | CA_ITS ---
APPROVED REPORT EXAM: Comprehensive 2D, Doppler, and color-flow Echocardiogram Fork Operator: Gretel Gayle RT(R) Ht: 5 ft 7 in Wt: 190lbs BSA: 1.98 BP: 116/82 mmHg Indications: SOA, CP, COPD, smoker, HTN, hyperlipidemia 2D Dimensions LVOT 1.81 cm (M/F) 1.5-2.5 LA Volume 21.70 mL LA Volume Index 10.96 mL/m2 (M/F) 16-34 M-Mode Dimensions RVDd 2.16 cm (0.9-2.6) LA Diam 2.90 cm (1.9-4.0) LVDd 4.36 cm (3.5-5.7) Ao Diam 2.48 cm (2.0-3.7) LVDs 3.53 cm (3.5-5.7) IVSd 0.83 cm (0.6-1.1) PWd 0.76 cm (0.6-1.1) EF (Teich) 39.50% FS 19.00% EDV (Teich) 85.80 mL ESV (Teich) 51.90 mL LV Diastology E Decel Time 197.00 (160-240 msec) E/A Ratio 0.8 MED E' 8.80 (< 7 cm/sec) E'/MED E' Ratio 8.05 (>14) LAT E' 10.60 (<10 cm/sec) E/LAT E' Ratio 6.68 (>14) Mitral Valve MV E Max Darian. 71.00 (40-130 cm/s) MV A Velocity 93.00 (40-130 cm/s) E/A Ratio 0.76 MV Decel. Time 197.00 (160-240 ms) MV PHT 58.00 ms Left Ventricle The left ventricle is normal size. The left ventricular systolic function is normal. The left ventricular ejection fraction is within the normal range. There is normal left ventricular wall thickness. There is normal LV segmental wall motion. The left ventricular diastolic function is normal. LVEF is 55%. Right Ventricle The right ventricle is normal size. The right ventricular systolic function is normal. Atria The left atrium size is normal. The right atrium size is normal. There is no Doppler evidence of interatrial shunt. Aortic Valve The aortic valve opens well. There is no aortic valvular stenosis. No aortic regurgitation is present. Mitral Valve The mitral valve is normal in structure. No evidence of mitral valve stenosis. Trace mitral regurgitation. Tricuspid Valve The tricuspid valve leaflets are thin and pliable. Trace tricuspid regurgitation. There is insufficient TR jet to estimate RVSP. Pulmonic Valve The pulmonary valve is normal in structure. Trace pulmonic regurgitation. Great Vessels The aortic root is normal in size. The ascending aorta is mildly dilated. The ascending aorta measures 4.1 cm. IVC is normal in size and collapses >50% with inspiration. Pericardium There is no pericardial effusion. Other Information Study Quality: Adequate Conclusion Normal biventricular systolic function. No significant valvular stenosis or regurgitation. Mildly dilated ascending aorta 4.1 cm. Electronically signed by : Lori Sanders, 05/16/2023 20:08:08
== END ==
PROVIDERS: PCP Nurse Practitioner Family; Visit Provider Nurse Practitioner Family
DX: I10 Essential (primary) hypertension (principal); I73.9 Peripheral vascular disease, unspecified; J44.9 Chronic obstructive pulmonary disease, unspecified; R06.00 Dyspnea, unspecified; Z72.0 Tobacco use; R07.9 Chest pain, unspecified; M25.562 Pain in left knee
CPT/HCPCS: 78452; 93017; 93306; A9502; J2785

== ENCOUNTER → 2023-05-16 09:16 | Outpatient (CLI) | payer MEDICARE, MEDICAID, SELFPAY ==
--- NOTE | 2023-05-16 09:24 | XR_ITS ---
FINAL REPORT CLINICAL HISTORY: knee pain left knee pain COMPARISON: 03/19/2022 FINDINGS: Left knee Two views were obtained. There is no acute fracture or dislocation. The joint spaces appear normal. No joint effusion is identified. No soft tissue abnormality is identified. IMPRESSION: No acute process. Reviewed, Interpreted and Dictated by Elias Olmstead MD Transcribed by eJnnifer Gillespie Authenticated and [facility]
== END ==
PROVIDERS: PCP Nurse Practitioner Family; Visit Provider Nurse Practitioner Family
DX: M25.562 Pain in left knee (principal)
CPT/HCPCS: 73560

== ENCOUNTER → 2023-06-10 08:46 | Outpatient (CLI) | payer MEDICARE, MEDICAID, SELFPAY ==
[2023-06-10 10:14] LABS: Hemoglobin A1C 5.9 % (4.0-6.0)
[2023-06-10 10:17] LABS: Alanine Aminotransferase 31 U/L (12-78); Albumin Level 4.6 g/dl (3.5-5.0); Alkaline Phosphatase 51 U/L (38-126); Anion Gap 14.6 mEq/L (5-15); Aspartate Amino Transferase 31 U/L (17-59); Bilirubin,Direct 0.1 mg/dl (0.0-0.4); Bilirubin,Indirect 0.6 mg/dL (0.0-0.9); Bilirubin,Total 0.7 mg/dl (0.2-1.3); Bilirubin,Unconjugated 0.6 mg/dL (0.0-1.1); Blood Urea Nitrogen 14 mg/dl (9-20); Calcium 9.7 mg/dl (8.4-10.2); Carbon Dioxide 26 mmol/L (22.0-30.0); Chloride 106 mmol/L (98-107); Chol/HDL Ratio 2.7 (1-3.5); Cholesterol 111 mg/dl (140-200); Estimated Glomerular Filt Rate 96 ml/min (>60); GFR (African American) 117 ML/MIN (>60); Glucose 102 mg/dl (74-100); HDL Cholesterol 41 mg/dl (40-60); Potassium 4.6 mmoL/L (3.5-5.1); Sodium 142 mmol/L (136-145); Total Protein,Serum 7.6 g/dl (6.3-8.2); Triglycerides 85 mg/dl (30-150); VLDL Cholesterol 17 mg/dL (0-40)
[2023-06-10 10:28] LABS: Direct LDL Cholesterol 58.49 mg/dL (100-129)
== END ==
PROVIDERS: PCP Nurse Practitioner Family; Visit Provider Physician Assistant
DX: E78.5 Hyperlipidemia, unspecified (principal); I73.9 Peripheral vascular disease, unspecified; J44.9 Chronic obstructive pulmonary disease, unspecified; M25.569 Pain in unspecified knee; R06.00 Dyspnea, unspecified; Z72.0 Tobacco use; E11.9 Type 2 diabetes mellitus without complications; I11.9 Hypertensive heart disease without heart failure
CPT/HCPCS: 36415; 80048; 80061; 80076; 83036

== ENCOUNTER → 2023-07-01 10:39 | Outpatient (CLI) | payer MEDICARE, MEDICAID, SELFPAY ==
--- NOTE | 2023-07-01 10:43 | XR_ITS ---
FINAL REPORT CLINICAL HISTORY: rt knee pain FINDINGS: Right knee Three views were obtained. There is no acute fracture or dislocation. The joint spaces appear normal. There is mild vascular calcification. IMPRESSION: No acute process. Reviewed, Interpreted and Dictated by Mayito Magana III, MD Transcribed by Jennifer Gillespie Authenticated and [facility]
== END ==
PROVIDERS: PCP Nurse Practitioner Family; Visit Provider Orthopaedic Surgery
DX: M25.561 Pain in right knee (principal)
CPT/HCPCS: 73562

== ENCOUNTER 2023-10-07 08:08 | Outpatient (CLI) | payer MEDICARE, MEDICAID, SELFPAY ==
[2023-10-07 09:04] LABS: Basophils # 0.1 K/mm3 (0-0.2); Basophils % 1.4 % (0.1-2.0); Eosinophils # 0.2 K/mm3 (0.0-0.4); Eosinophils % 2.9 % (0.1-12.0); Hematocrit 52.6 % (42.0-52.0); Hemoglobin 17.6 g/dL (14.1-18.0); Lymphocytes # 2.8 K/mm3 (0.7-4.5); Lymphocytes % 39.8 % (10-50); Mean Corpuscular HGB Conc 33.4 g/dL (31.8-35.4); Mean Corpuscular Hemoglobin 31.4 pg (27.0-31.2); Mean Corpuscular Volume 93.8 fl (80-94); Mean Platelet Volume 8.6 fl (7.4-10.4); Monocytes # 0.5 K/mm3 (0.1-1.0); Neutrophils # 3.4 K/mm3 (1.8-7.8); Neutrophils % 48.9 % (37.0-80.0); Platelet Count 163 K/mm3 (142-424); Red Blood Count 5.61 M/mm3 (4.60-6.20); Red Cell Distribution Width 13.8 % (11.5-17.5)
[2023-10-07 09:05] LABS: Chloride 101 mmol/L (98-107); Potassium 4.8 mmoL/L (3.5-5.1); Sodium 138 mmol/L (136-145)
[2023-10-07 09:07] LABS: Blood Urea Nitrogen 14 mg/dl (9-20); Estimated Glomerular Filt Rate 84 ml/min (>60); GFR (African American) 102 ML/MIN (>60)
[2023-10-07 09:08] LABS: Alanine Aminotransferase 31 U/L (12-78); Albumin Level 4.6 g/dl (3.5-5.0); Alkaline Phosphatase 57 U/L (38-126); Anion Gap 12.8 mEq/L (5-15); Aspartate Amino Transferase 32 U/L (17-59); Bilirubin,Direct 0.6 mg/dl (0.0-0.4); Bilirubin,Indirect 0.2 mg/dL (0.0-0.9); Bilirubin,Total 0.8 mg/dl (0.2-1.3); Bilirubin,Unconjugated 0.2 mg/dL (0.0-1.1); Calcium 9.6 mg/dl (8.4-10.2); Carbon Dioxide 29 mmol/L (22.0-30.0); Cholesterol 87 mg/dl (140-200); Glucose 109 mg/dl (74-100); Magnesium 1.9 mg/dl (1.6-2.3); Total Protein,Serum 7.3 g/dl (6.3-8.2); Triglycerides 89 mg/dl (30-150); VLDL Cholesterol 18 mg/dL (0-40)
[2023-10-07 09:09] LABS: Chol/HDL Ratio 2.7 (1-3.5); HDL Cholesterol 32 mg/dl (40-60)
[2023-10-07 09:20] LABS: Direct LDL Cholesterol 44.56 mg/dL (100-129)
[2023-10-07 09:25] LABS: Free T4 (Free Thyroxine) 0.98 ng/dl (0.78-2.19)
[2023-10-07 09:40] LABS: Thyroid Stimulating Hormone 1.83 uIU/mL (0.465-4.68)
== END 2023-10-07 23:59 ==
LOC: LAB 08:10
PROVIDERS: PCP Nurse Practitioner Family; Visit Provider Nurse Practitioner
DX: E78.5 Hyperlipidemia, unspecified (principal); I10 Essential (primary) hypertension; I73.9 Peripheral vascular disease, unspecified; J44.9 Chronic obstructive pulmonary disease, unspecified; R42 Dizziness and giddiness; Z72.0 Tobacco use; Z79.899 Other long term (current) drug therapy
CPT/HCPCS: 36415; 80048; 80061; 80076; 83735; 84439; 84443; 85025

== ENCOUNTER 2023-12-29 11:39 | Observation (INO) | payer MEDICARE, MEDICAID, SELFPAY ==
[2023-12-29] VITALS (19 sets, daily range): BP systolic 121–191; BP diastolic 59–106; PULSE 60–94; RESP 15–18; TEMP 36.6–36.9; O2SAT 91–99; BMI 30.4; BMI 26.9
--- NOTE | 2023-12-29 07:21 | IR_ITS ---
APPROVED REPORT Patient Location: Outpatient Gambreler Helper: BRYSON Saldana RT (R) PROCEDURES Left heart catheterization Left ventriculogram Selective coronary angiogram Catheter placement in the right common iliac artery Right common iliac artery antegrade angiogram with unilateral runoff to the right foot Catheter placement in the left common iliac artery Left common iliac artery antegrade angiogram with unilateral runoff to the left foot Catheter placed in the distal abdominal aorta Distal abdominal aortogram Drug-eluting stent deployment in the left main artery extending to the proximal LAD Drug-eluting stent deployment to the proximal mid and distal dominant right coronary INDICATION Angina pectoris, Esmond claudication class III, Known peripheral artery disease with history of iliac stents, Coronary artery disease, Heavy smoker with advanced COPD deemed not to be an ideal surgical candidate Informed consent was obtained prior to the procedure. COMPLICATIONS NONE Estimated Blood Loss: LESS THAN 10 ML TECHNIQUE One percent lidocaine used to anesthetize the right anterior aspect of the wrist. The right radial artery was accessed via the Seldinger technique. A 6 Burkinan sheath was placed in the right radial artery. 2.5 mg of Verapamil, 800 mcg of nitroglycerin, 1mg Lidocaine and 5000 U Heparin were given through the arterial sheath. The papa catheter was also used to perform left heart catheterization, left ventriculogram and selective coronary angiogram. At the end of the diagnostic cardiac angiogram the catheter was placed in the transverse aorta and the wire was advanced to the distal descending aorta. The catheter was removed and a PV multi curve was placed in the right common iliac artery where antegrade angiography was performed with unilateral runoff to the right foot. This was repeated in the left common iliac artery. The catheter was then pulled back to the distal abdominal aorta were distal abdominal aortography was performed. I broke scrub and spoke with the and she indicated patient has advanced lung disease is a heavy smoker and coughs for prolonged periods of time with heavy sputum in the morning. We deemed patient would not be ideal for bypass surgery and elected to proceed with percutaneous intervention. At this point I rescrubbed back into the case and the Poppa catheter was placed in the left main artery followed by Choice PT extra-support wire down the LAD. A 4 mm x 26 mm Lj frontier stent was deployed in the proximal left main artery extending into the proximal LAD at 18 nithin. A 5 mm x 12 mm noncompliant balloon was placed in the left main artery extending into the ostial LAD and deployed at 18 nithin further post dilating. This was inflated twice. After achieving excellent angiographic results the apparatus was removed from the left main artery and placed in the right coronary artery with a Choice PT extra-support wire placed distally. A 3.5 x 38 mm Lj frontier stent was placed in the mid to distal LAD and deployed at 20 nithin. An additional 4 mm x 12 mm Lj frontier stent was placed proximal to this and deployed at 24 nithin to post dilate. The balloon was advanced throughout 35 mm of the 38 mm stent and deployed at 18 nithin to post dilate. JOHANN-3 flow was present before and after the procedure. At the end the procedure the apparatus was removed the sheath was removed and hemostasis was achieved using TR banding patient was transferred to the postop holding area in stable condition ANGIOGRAPHIC RESULTS The left main artery Has a distal concentric 60% stenosis with the plaque being directed away from the circumflex artery The left anterior descending artery Has an ostial 60% followed by a concentric 80% stenosis. The rest of the vessel has mild luminal regularities The circumflex artery Nondominant with mild diffuse 10% luminal irregularities The right coronary artery Large dominant with a proximal 50% and mid vessel 80% stenosis. Distally there are diffuse 10% luminal irregularities The GALLAGHER ventriculogram reveals Normal 65% The left ventricular end-diastolic pressure 15 mmHg Distal abdominal aorta is widely patent but mildly atheromatous Right common iliac artery has a stent in the ostial proximal segment which extends throughout its entire course. The right internal iliac artery is patent the right external iliac artery is patent. Right common femoral artery and right profunda femoris arteries are patent. Right superficial femoral artery is patent and then occluded at Hubert's canal and then reconstitutes after short segment of occlusion from collaterals from the SFA. The popliteal artery reconstitutes at the pregeniculate level and then has three-vessel runoff below the knee Left common iliac artery has a stent in the proximal mid and distal segment which is widely patent with wide patency and free of in-stent restenosis. There is excellent distal transitioning while the left internal iliac artery appears to be occluded. The left common femoral artery has an eccentric 20% stenosis. The left profunda femoris artery is widely patent. The left superficial femoral artery has diffuse 40 to 50% atheromatous plaque which extends into the popliteal artery. There is three-vessel runoff below the knee on the left IMPRESSION Severe distal left main disease which extended into the proximal LAD as described above Successful stenting of the left main artery extending the proximal ID severe disease reduced to less than 10% with 1 contiguous drug-eluting stent Severe disease throughout the mid and distal dominant right coronary Successful stenting of the proximal mid and distal right coronary severe disease reduced to 0% with 2 contiguous drug-eluting stents Normal ejection fraction Normal left ventricular end-diastolic pressure Widely patent bilateral iliac artery stents Occluded left SFA popliteal artery at [facility] Three-vessel runoff below the knee bilaterally PLAN 1. Effient 10 mg daily plus aspirin 81 mg daily 2. Strongly recommend avoidance of tobacco products 3. Patient be brought back to the Concessions Manager in 2 weeks and will undergo shockwave with drug-coated balloon angioplasty to the right SFA at [facility] 4. Patient will be admitted overnight due to the complexity of the procedure copious contrast. 5. LDL less than 55 to be achieved with high intensity statin 6. Avoidance of tobacco products 7. Cardiac rehabilitation Electronically signed by : Sohan Stephen MD 12/29/2023 11:18:39
[2023-12-29 09:07] LABS: Basophils # 0.1 K/mm3 (0-0.2); Basophils % 1.2 % (0.1-2.0); Eosinophils # 0.2 K/mm3 (0.0-0.4); Eosinophils % 1.9 % (0.1-12.0); Hematocrit 51.5 % (42.0-52.0); Hemoglobin 16.7 g/dL (14.1-18.0); Lymphocytes # 2.2 K/mm3 (0.7-4.5); Lymphocytes % 27.5 % (10-50); Mean Corpuscular HGB Conc 32.4 g/dL (31.8-35.4); Mean Corpuscular Hemoglobin 31.7 pg (27.0-31.2); Mean Corpuscular Volume 97.6 fl (80-94); Mean Platelet Volume 8.8 fl (7.4-10.4); Monocytes # 0.5 K/mm3 (0.1-1.0); Monocytes % 6.9 % (1.7-9.3); Neutrophils # 4.9 K/mm3 (1.8-7.8); Neutrophils % 62.6 % (37.0-80.0); Platelet Count 171 K/mm3 (142-424); Red Blood Count 5.28 M/mm3 (4.60-6.20); Red Cell Distribution Width 14.1 % (11.5-17.5); White Blood Count 7.9 K/mm3 (4.8-10.8)
[2023-12-29 09:21] LABS: Chloride 109 mmol/L (98-107); Potassium 4.7 mmoL/L (3.5-5.1); Sodium 139 mmol/L (136-145)
[2023-12-29 09:24] LABS: Anion Gap 9.7 mEq/L (5-15); Blood Urea Nitrogen 12 mg/dl (9-20); Calcium 9.6 mg/dl (8.4-10.2); Carbon Dioxide 25 mmol/L (22.0-30.0); Creatinine Clearance Estimated 88 mL/min (50-200); Estimated Glomerular Filt Rate 112 ml/min (>60); GFR (African American) 136 ML/MIN (>60); Glucose 110 mg/dl (74-100)
[2023-12-29] MEDS: LIDOCAINE 1% 10ML MDV 20 ML IJ (10:04)
[2023-12-29] MEDS: HEPARIN 1,000 UNITS/500ML NS (CATH LAB) 3000 UNIT IV (10:04)
[2023-12-29] MEDS: 0.9 % SODIUM CHLORIDE 500 ML 25 ML IV (10:04)
[2023-12-29] MEDS: diphenhydrAMINE 50MG/ML VIAL 50 MG IV (10:05)
[2023-12-29] MEDS: HEPARIN 1,000 UNITS/ML 10ML VIAL (CATH LAB) 10000 UNIT IV (10:05)
[2023-12-29] MEDS: NITROGLYCERIN 800MCG/8ML SYR (CATH LAB) 800 MCG IA (10:05)
[2023-12-29] MEDS: VERAPAMIL 2.5MG/ML 2ML VIAL 2.5 MG IV (10:05)
[2023-12-29] MEDS: MIDAZOLAM HCL 1MG/1ML 5ML VIAL 1 MG IV (11:01)
[2023-12-29] MEDS: FENTANYL 100MCG/2ML VIAL 50 MCG IV (11:02)
[2023-12-29] MEDS: IOPAMIDOL-370 (76%);100ML BOTTLE 150 ML IV (11:18)
[2023-12-29] MEDS: PRASUGREL 10MG TAB 60 MG PO (11:23)
[2023-12-29 11:27] LABS: CATHL Activated Clotting Time 362 SEC (74-125)
--- NOTE | 2023-12-29 11:41 | EXP.HP ---
History of Present Illness *Admission Date: 12/29/23 *Reason for visit:: Coronary artery disease, abnormal stress test *History of present illness: 68-year-old male with recent abnormal stress test. Unable to complete stress test due to shortness of breath. Has history of orthopnea. Significant tobacco use history with over 96-fity-sykh history. Presented for outpatient cath. Found to have multivessel disease, received 3 stents. Also noted to have peripheral vascular disease. Will need to have staged intervention in 2 weeks with stenting of right popliteal. Due to contrast load, cardiology requested admission. Medicine agreed to admit. After arriving to the floor, patient is alert and oriented x 3. Stable on room air. Normotensive. Denies any chest pain. Does state he gets short of breath with exertion and when he lays flat. Denies any nausea or vomiting. at bedside. [facility] Disclaimer: The information contained in this section may have been updated after the patient was seen, as this information can be updated by other users. Medical History Anginal equivalent Erectile dysfunction Orthopnea Hyperlipidemia Dyspnea Hypertension Painful and cold lower extremity Bilateral claudication of lower limb Numbness in right leg PAD (peripheral artery disease) Daytime somnolence Social History Smoking Status: Current every day smoker tobacco type: cigarettes packs per day: 1 alcohol intake: never substance use type: denies use current occupational status: other Travel in the last 8 weeks: Inside the [place] household members: other housing: house caffeine: Yes Review of Systems Review of Systems Review of systems (narrative): 14 point review of systems performed, pertinent positives and negatives as per [facility] Meds Home Medications and Allergies Home Medications Medication Instructions Recorded Confirmed Type aspirin 81 mg tablet,delayed 81 mg PO DAILY #30 tabs 09/16/23 12/29/23 Rx release (Adult Aspirin Regimen) furosemide 20 mg tablet (Lasix) 20 mg PO DAILY #90 tabs 09/16/23 12/29/23 Rx atorvastatin 40 mg tablet (Lipitor) 40 mg PO DAILY #90 tabs 11/24/23 12/29/23 Rx prasugrel 10 mg tablet (Effient) 10 mg PO DAILY #30 tabs 12/29/23 Rx New Prescriptions to Start Prescriptions: prasugrel [Effient] ZafarSohan Allergies Allergy/AdvReac Type Severity Reaction Status Date / Time No Known Allergies Allergy Verified 11/24/23 13:16 Exam Data for Last 24 hours Vital signs and Labs for Last 24 Hours: Temp Pulse Resp BP Pulse Ox O2 Del Method 98.4 F 80 16 191/106 H 95 Room Air 12/29/23 08:45 12/29/23 11:10 12/29/23 11:10 12/29/23 11:10 12/29/23 11:10 12/29/23 11:10 Laboratory Results - last 24 hr 12/29/23 08:40: WBC 7.9, RBC 5.28, Hgb 16.7, Hct 51.5, MCV 97.6 H, MCH 31.7 H, MCHC 32.4, RDW 14.1, Plt Count 171, MPV 8.8, Neut % (Auto) 62.6, Lymph % (Auto) 27.5, [place] % (Auto) 6.9, Eos % (Auto) 1.9, Baso % (Auto) 1.2, Neut # (Auto) 4.9, Lymph # (Auto) 2.2, [place] # (Auto) 0.5, Eos # (Auto) 0.2, Baso # (Auto) 0.1, Sodium 139, Potassium 4.7, Chloride 109 H, Carbon Dioxide 25, Anion Gap 9.7, BUN 12, Creatinine 0.70, Estimated Creat Clear 88, Estimated GFR 112, Est GFR ( Amer) 136, Glucose 110 H, Calcium 9.6 12/29/23 10:39: Activated Clotting Time 362 H* I & O for Last 24 hours: Intake & Output 12/26/23 12/27/23 12/28/23 12/29/23 23:59 23:59 23:59 23:59 Weight 87.997 kg Constitutional Constitutional: no acute distress, average body habitus, chronically ill appearing and cooperative *Routine HEENT Exam Head: Present normocephalic Eye: Present EOMI and PERRL ENT: Present mucous membranes moist *Routine Neck Exam Neck: Present supple; Absent lymphadenopathy *Routine Respiratory Exam Respiratory: Present prolonged expiratory phase and rhonchi (With cough, otherwise clear); Absent wheezes or crackles *Routine Cardiovascular Exam Cardiovascular: Present RRR *Routine Abdominal Exam Abdominal: Present soft and normoactive bowel sounds; Absent tenderness *Routine Rectal Exam Rectal:: deferred *Routine Genitalia Exam Genitalia:: deferred *Routine Extremities Exam Extremities: Absent cyanosis, clubbing or edema *Routine Skin Exam Skin: Present warm; Absent rash *Routine Neurological Exam Neurological: Present alert, oriented X3 and moving all extremities; Absent altered mental status Assessment and Plan *Assessment and plan (1) Coronary artery disease: Status: Acute Category: Medical Code(s): I25.10 - Atherosclerotic heart disease of [place] coronary artery without angina pectoris (2) Status post angioplasty with stent: Status: Acute Category: Surgical Code(s): Z95.820 - Peripheral vascular angioplasty status with implants and grafts (3) Anginal equivalent: Status: Acute Category: Medical Code(s): I20.89 - Other forms of angina pectoris (4) Hypertension: Status: Acute Qualifiers: Hypertension type: unspecified Qualified Code(s): I10 - Essential (primary) hypertension Category: Medical Code(s): I10 - Essential (primary) hypertension (5) Hyperlipidemia: Status: Acute Qualifiers: Hyperlipidemia type: mixed hyperlipidemia Qualified Code(s): E78.2 - Mixed hyperlipidemia Category: Medical Code(s): E78.5 - Hyperlipidemia, unspecified (6) Tobacco use: Status: Chronic Category: Social Hx Code(s): Z72.0 - Tobacco use (7) COPD (chronic obstructive pulmonary disease): Status: Acute Qualifiers: COPD type: unspecified COPD Qualified Code(s): J44.9 - Chronic obstructive pulmonary disease, unspecified Category: Medical Code(s): J44.9 - Chronic obstructive pulmonary disease, unspecified (8) PAD (peripheral artery disease): Status: Acute Category: Medical Code(s): I73.9 - Peripheral vascular disease, unspecified Plan 68-year-old male with significant peripheral artery disease and coronary artery disease. Brought in for elective cath after abnormal stress test. Discussed case with cardiology, request admission for monitoring overnight given contrast load and significant disease necessitating stenting. Medicine agreed to admit for further management. Hemodynamically stable. On room air. Problems addressed as follows: CAD PAD S/p [facility] with stenting -Patient presented for elective heart cath due to abnormal stress test. Found to have multivessel disease. Received 1 stent to the proximal LAD and 2 stents to the RCA. Tolerated procedure well. Also had runoff evaluation of his legs performed. Found to have peripheral artery disease needed staged intervention with stenting in a couple weeks. -Continue aspirin 81 mg daily and Effient 10 mg daily for dual antiplatelet therapy. -Initiate statin Lipitor 40 mg nightly -Lipid panel ordered and pending for the morning -Kidney function normal with BUN 12, creatinine 0.7. Due to contrast load will monitor overnight with repeat labs in the morning. CBC, CMP, magnesium ordered for the morning. -Lasix 20 mg daily for volume status -Cardiology consulted and assisting with care. Significant tobacco use history, greater than 75 pack years -No formal diagnosis of COPD but reports dyspnea with exertion and is barrel chested on exam -DuoNebs every 6 hours as needed for shortness of breath -Nicotine patch daily as needed for tobacco use disorder, counseled on benefits of cessation. 10 minutes in discussion about patient's history with tobacco use, benefits of cessation, risks of further progression of coronary artery disease and peripheral artery disease. Full code Heparinized and Cyber Engineer Cardiac diet
--- NOTE | 2023-12-29 11:42 | CA_ITS ---
APPROVED REPORT EXAM: Comprehensive 2D, Doppler, and color-flow Echocardiogram Medical Laboratory Scientist: Rina Bazan CRT Ht: 5 ft 7 in Wt: 194lbs BSA: 2.00 BP: 149/78 mmHg Indications: S/P heart cath 3 stents today Chest Pain, COPD, Shortness of Breath, Hyperlipidemia, Hypertension/HDD, smoker, pad, peripheral stents 2D Dimensions Left Atrium 4.16 cm LVEF (Alvarado's) 57.90 % LVOT 2.05 cm (M/F) 1.5-2.5 LV Volume 105.90 mL LA Volume 11.60 mL LA Volume Index 5.80 mL/m2 (M/F) 16-34 EF AP4 55.80 % EF AP2 58.2 % EF BP 57.9 % GL Strain -15.5 % M-Mode Dimensions RVDd 2.89 cm (0.9-2.6) LVDd 4.38 cm (3.5-5.7) Ao Diam 4.04 cm (2.0-3.7) LVDs 3.24 cm (3.5-5.7) IVSd 0.93 cm (0.6-1.1) PWd 0.71 cm (0.6-1.1) EF (Teich) 51.40% FS 26.00% EDV (Teich) 86.80 mL ESV (Teich) 42.20 mL LV Diastology E Decel Time 300 (160-240 msec) E/A Ratio 0.60 MED E' 7.8 (>= 7 cm/sec) MED A' 10.10 cm/s E'/MED E' Ratio 6.76 (<= 14) LAT E' 8.5 (>= 10 cm/sec) LAT A' 9.70 cm/s E/LAT E' Ratio 6.20 (<= 14) Aortic Valve AoV Peak Darian. 104.0 (50-130 cm/s) AO Peak GR. 4.30 mmHg Mitral Valve MV E Max Darian. 53.0 (40-130 cm/s) MV A Velocity 88.0 (40-130 cm/s) E/A Ratio 0.60 MV Decel. Time 300 (160-240 ms) Tricuspid Valve TR P. Velocity 191.00 cm/s RAP Estimate 10.00 mmHg RVSP 24.60 mmHg Left Ventricle The left ventricle is normal size. The left ventricular systolic function is normal. The left ventricular ejection fraction is within the normal range. There is increased LV wall thickness. There is normal LV segmental wall motion. Transmitral Doppler flow pattern suggests impaired LV relaxation. LVEF is 55%. Right Ventricle The right ventricle is normal size. The right ventricular systolic function is normal. Atria The left atrium size is normal. The right atrium size is normal. There is no Doppler evidence of interatrial shunt. Aortic Valve The aortic valve is mildly thickened. There is no aortic valvular stenosis. No aortic regurgitation is present. Mitral Valve The mitral valve leaflets are mildly thickened. No evidence of mitral valve stenosis. There is no mitral valve regurgitation noted. Tricuspid Valve The tricuspid valve leaflets are thin and pliable. Trace tricuspid regurgitation. There is insufficient TR jet to estimate RVSP. Pulmonic Valve The pulmonary valve is normal in structure. Trace pulmonic regurgitation. Great Vessels The aortic root is normal in size. The ascending aorta is not well-visualized. IVC is normal in size and collapses >50% with inspiration. Pericardium There is no pericardial effusion. Other Information Study Quality: Fair Conclusion Normal biventricular systolic function. No significant valvular stenosis or regurgitation. Electronically signed by : Lori Sanders MD 01/02/2024 00:48:25
--- NOTE | 2023-12-29 12:01 | PC.NURSE ---
pt arrived to floor by stretcher from radiographer cardiac catheterization @ 1200
[2023-12-29] MEDS: IOHEXOL-240 100ML BOTTLE 120 ML IV (13:12)
[2023-12-29] MEDS: NICOTINE 21MG/24HR PATCH 21 MG TD (16:48)
--- NOTE | 2023-12-29 16:52 | PC.NURSE ---
A&OX4. TOLERATING RA WELL. UNDERWENT HEART CATH TODAY, RIGHT RADIAL CATH SITE PRESENT, DRESSING APPLIED, CDI. PT UP INDEPENDENTLY IN ROOM AND WALKING HALLWAYS. DOES SEEM ANXIOUS, STATES HE DOESN'T LIKE TO SIT AROUND. PT HAS STATED HE IS FEELING SOA AT TIMES, BUT SAYS IT IS BETTER WHEN HE SITS UP. NO TROUBLE BREATHING WITNESSED UPON ASSESSMENT. GIVEN NICOTINE PATCH PER NOV. PT HAS HAD NO OTHER NEEDS OR C/O THUS FAR. VSS.
--- NOTE | 2023-12-29 18:59 | PC.NURSE ---
THIS NURSE WENT IN ROOM TO CHECK ON PATIENT AND GET LAST SET OF V/S. PT FOUND TO NOT BE IN ROOM/BATHROOM. WAS NOT WALKING ON UNIT. PATIENT AND OUTSIDE, PATIENT WENT TO SMOKE, DID NOT LET ANY STAFF KNOW. WALKED WITH PATIENT BACK TO ROOM. EXPLAINED FACILITY POLICY ON SMOKING. PATIENT V/U BUT STATES I WILL BE LEAVING MULTIPLE TIMES TONIGHT TO SMOKE. HOUSE SUPERVISORS MADE AWARE, THEY ARE SPEAKING WITH PATIENT AT THIS TIME.
--- NOTE | 2023-12-29 19:12 | P.DS_ITS ---
General Admission date:: 12/29/23 Discharge date: 12/29/23 HPI HPI HPI: 68-year-old male with recent abnormal stress test. Unable to complete stress test due to shortness of breath. Has history of orthopnea. Significant tobacco use history with over 99-swgm-lslh history. Presented for outpatient cath. Found to have multivessel disease, received 3 stents. Also noted to have peripheral vascular disease. Will need to have staged intervention in 2 weeks with stenting of right popliteal. Due to contrast load, cardiology requested admission. Medicine agreed to admit. After arriving to the floor, patient is alert and oriented x 3. Stable on room air. Normotensive. Denies any chest pain. Does state he gets short of breath with exertion and when he lays flat. Denies any nausea or vomiting. at bedside. Hospital Course Hospital Course Hospital Course: 68-year-old male with significant peripheral artery disease and coronary artery disease. Brought in for elective cath after abnormal stress test. Discussed case with cardiology, request admission for monitoring overnight given contrast load and significant disease necessitating stenting. Medicine agreed to admit for further management. Hemodynamically stable. On room air. Patient was not happy that he could not go smoke. Left the floor without informing nursing. When informed that he could not go smoke, he decided he wanted to leave AMA. Explained risk of harm, patient very clear he did not want to stay. Signed AMA paperwork and discharged home problems addressed as follows: CAD PAD S/p [facility] with stenting -Patient presented for elective heart cath due to abnormal stress test. Found to have multivessel disease. Received 1 stent to the proximal LAD and 2 stents to the RCA. Tolerated procedure well. Also had runoff evaluation of his legs performed. Found to have peripheral artery disease needed staged intervention with stenting in a couple weeks. Initiated on aspirin 81 mg daily and Effient 10 mg daily. Continuing home Lipitor 40 mg daily and Lasix 20 mg daily. Meds were sent electronically to [facility] at his request. Encouraged to come back in the morning for outpatient labs which she had an order for from cardiology. Encouraged him to follow-up with cardiology clinic if having any symptoms. Stressed the importance of not missing his dual antiplatelet therapy due to risk for in-stent thrombosis and HI/sudden cardiac . Patient and significant other stated understanding. Significant tobacco use history, greater than 75 pack years -No formal diagnosis of COPD but reports dyspnea with exertion and is barrel chested on exam. Initiated on DuoNebs. Started on nicotine patch. Patient adamant that he wanted to smoke. This was the underlying cause for his desire to leave A. Exam Data for Last 24 hours Vital signs and Labs for Last 24 Hours: Temp Pulse Resp BP Pulse Ox O2 Del Method 97.8 F 94 H 18 144/98 H 95 Room Air 12/29/23 12:05 12/29/23 18:35 12/29/23 18:35 12/29/23 18:35 12/29/23 18:35 12/29/23 18:57 Laboratory Results - last 24 hr 12/29/23 08:40: WBC 7.9, RBC 5.28, Hgb 16.7, Hct 51.5, MCV 97.6 H, MCH 31.7 H, MCHC 32.4, RDW 14.1, Plt Count 171, MPV 8.8, Neut % (Auto) 62.6, Lymph % (Auto) 27.5, Rhea % (Auto) 6.9, Eos % (Auto) 1.9, Baso % (Auto) 1.2, Neut # (Auto) 4.9, Lymph # (Auto) 2.2, Rhea # (Auto) 0.5, Eos # (Auto) 0.2, Baso # (Auto) 0.1, Sodium 139, Potassium 4.7, Chloride 109 H, Carbon Dioxide 25, Anion Gap 9.7, BUN 12, Creatinine 0.70, Estimated Creat Clear 88, Estimated GFR 112, Est GFR ( Amer) 136, Glucose 110 H, Calcium 9.6 12/29/23 10:39: Activated Clotting Time 362 H* I & O for Last 24 hours: Intake & Output 12/26/23 12/27/23 12/28/23 12/29/23 23:59 23:59 23:59 23:59 Intake Total 840 / 840 Output Total 0 / 0 Balance 840 / 840 Weight 87.543 kg Constitutional Constitutional: no acute distress *Routine HEENT Exam Head: Present normocephalic Eye: Present EOMI and PERRL ENT: Present mucous membranes moist *Routine Neck Exam Neck: Present supple; Absent lymphadenopathy *Routine Respiratory Exam Respiratory: Present CTA bilaterally *Routine Cardiovascular Exam Cardiovascular: Present RRR *Routine Abdominal Exam Abdominal: Present soft and normoactive bowel sounds; Absent tenderness *Routine Extremities Exam Extremities: Absent cyanosis, clubbing or edema *Routine Skin Exam Skin: Present warm; Absent rash *Routine Neurological Exam Neurological: Present alert and oriented X3 Results Data Completed and Pending Labs on day of discharge: Labs from last 24 hours 12/29/23 12/29/23 10:39 08:40 WBC 7.9 RBC 5.28 Hgb 16.7 Hct 51.5 MCV 97.6 H MCH 31.7 H MCHC 32.4 RDW 14.1 Plt Count 171 MPV 8.8 Neut % (Auto) 62.6 Lymph % (Auto) 27.5 Rhea % (Auto) 6.9 Eos % (Auto) 1.9 Baso % (Auto) 1.2 Neut # (Auto) 4.9 Lymph # (Auto) 2.2 Rhea # (Auto) 0.5 Eos # (Auto) 0.2 Baso # (Auto) 0.1 Activated Clotting Time 362 H* Sodium 139 Potassium 4.7 Chloride 109 H Carbon Dioxide 25 Anion Gap 9.7 BUN 12 Creatinine 0.70 Estimated Creat Clear 88 Estimated GFR 112 Est GFR ( Amer) 136 Glucose 110 H Calcium 9.6 DS: Diagnosis Discharge Diagnosis (1) Coronary artery disease: Status: Acute Code(s): I25.10 - Atherosclerotic heart disease of [place] coronary artery without angina pectoris (2) Status post angioplasty with stent: Status: Acute Code(s): Z95.820 - Peripheral vascular angioplasty status with implants and grafts (3) Anginal equivalent: Status: Acute Code(s): I20.89 - Other forms of angina pectoris (4) Hypertension: Status: Acute Code(s): I10 - Essential (primary) hypertension Qualifiers: Hypertension type: unspecified Qualified Code(s): I10 - Essential (primary) hypertension (5) Hyperlipidemia: Status: Acute Code(s): E78.5 - Hyperlipidemia, unspecified Qualifiers: Hyperlipidemia type: mixed hyperlipidemia Qualified Code(s): E78.2 - Mixed hyperlipidemia (6) Tobacco use: Status: Chronic Code(s): Z72.0 - Tobacco use (7) COPD (chronic obstructive pulmonary disease): Status: Acute Code(s): J44.9 - Chronic obstructive pulmonary disease, unspecified Qualifiers: COPD type: unspecified COPD Qualified Code(s): J44.9 - Chronic obstructive pulmonary disease, unspecified (8) PAD (peripheral artery disease): Status: Acute Code(s): I73.9 - Peripheral vascular disease, unspecified Meds Home Medications and Allergies Home Medications Medication Instructions Recorded Confirmed Type aspirin 81 mg tablet,delayed 81 mg PO DAILY 30 days #30 tabs 12/29/23 Rx release atorvastatin 40 mg tablet 40 mg PO HS 30 days #30 tabs 12/29/23 Rx furosemide 20 mg tablet 20 mg PO DAILY 30 days #30 tabs 12/29/23 Rx prasugrel 10 mg tablet 10 mg PO DAILY 30 days #30 tabs 12/29/23 Rx New Prescriptions to Start Prescriptions: Mejia Werner atorvastatin Mejia Springer furosemide Mejia Springer prasugrel Mejia Springer Allergies Allergy/AdvReac Type Severity Reaction Status Date / Time No Known Allergies Allergy Verified 11/24/23 13:16 Discharge Plan Disposition Patient Disposition: Left Against Medical Advice Condition: Fair Providers Admit Provider: Mejia Springer Attending Provider: Mejia Springer
== END 2023-12-29 19:11 | disposition left against medical advice (07) ==
LOC: 2ND 11:39
PROVIDERS: Internal Medicine; Admitting Provider Internal Medicine Adolescent Medicine; PCP Nurse Practitioner Family; Visit Provider Internal Medicine Adolescent Medicine
DX: R42 Dizziness and giddiness (principal); I10 Essential (primary) hypertension; E78.2 Mixed hyperlipidemia; R06.09 Other forms of dyspnea; I70.213 Atherosclerosis of native arteries of extremities with intermittent claudication, bilateral legs; R06.01 Orthopnea; N52.9 Male erectile dysfunction, unspecified; F17.210 Nicotine dependence, cigarettes, uncomplicated; I25.118 Atherosclerotic heart disease of native coronary artery with other forms of angina pectoris; Z95.820 Peripheral vascular angioplasty status with implants and grafts; J44.9 Chronic obstructive pulmonary disease, unspecified
CPT/HCPCS: 36247; 75625; 75716; 80048; 85025; 85347; 92928; 93306; 93458; 99152; 99153; C1725; C1769; C1876; C9600; G0378; J1644; Q9966; Q9967

== ENCOUNTER 2023-12-30 08:36 | Outpatient (CLI) | payer MEDICARE, MEDICAID, SELFPAY ==
[2023-12-30 09:17] LABS: Basophils # 0.1 K/mm3 (0-0.2); Basophils % 0.9 % (0.1-2.0); Eosinophils # 0.1 K/mm3 (0.0-0.4); Eosinophils % 1.2 % (0.1-12.0); Hematocrit 52.1 % (42.0-52.0); Hemoglobin 16.8 g/dL (14.1-18.0); Lymphocytes # 2.4 K/mm3 (0.7-4.5); Lymphocytes % 25.5 % (10-50); Mean Corpuscular HGB Conc 32.3 g/dL (31.8-35.4); Mean Corpuscular Hemoglobin 31.4 pg (27.0-31.2); Mean Corpuscular Volume 97.3 fl (80-94); Mean Platelet Volume 8.1 fl (7.4-10.4); Monocytes # 0.7 K/mm3 (0.1-1.0); Monocytes % 7.3 % (1.7-9.3); Neutrophils # 6.1 K/mm3 (1.8-7.8); Neutrophils % 65.1 % (37.0-80.0); Platelet Count 163 K/mm3 (142-424); Red Blood Count 5.35 M/mm3 (4.60-6.20); Red Cell Distribution Width 14.1 % (11.5-17.5); White Blood Count 9.3 K/mm3 (4.8-10.8)
[2023-12-30 09:39] LABS: Chloride 108 mmol/L (98-107)
[2023-12-30 09:40] LABS: Potassium 4.2 mmoL/L (3.5-5.1); Sodium 141 mmol/L (136-145)
[2023-12-30 09:42] LABS: Alanine Aminotransferase 31 U/L (12-78); Aspartate Amino Transferase 35 U/L (17-59); Bilirubin,Unconjugated 0.5 mg/dL (0.0-1.1); Blood Urea Nitrogen 10 mg/dl (9-20); Estimated Glomerular Filt Rate 96 ml/min (>60); GFR (African American) 116 ML/MIN (>60)
[2023-12-30 09:43] LABS: Albumin Level 4.5 g/dl (3.5-5.0); Alkaline Phosphatase 70 U/L (38-126); Anion Gap 9.2 mEq/L (5-15); Bilirubin,Direct 0.3 mg/dl (0.0-0.4); Bilirubin,Indirect 0.5 mg/dL (0.0-0.9); Bilirubin,Total 0.8 mg/dl (0.2-1.3); Calcium 10.2 mg/dl (8.4-10.2); Carbon Dioxide 28 mmol/L (22.0-30.0); Chol/HDL Ratio 2.6 (1-3.5); Cholesterol 97 mg/dl (140-200); Glucose 115 mg/dl (74-100); HDL Cholesterol 38 mg/dl (40-60); Magnesium 1.9 mg/dl (1.6-2.3); Total Protein,Serum 6.9 g/dl (6.3-8.2); Triglycerides 93 mg/dl (30-150); VLDL Cholesterol 19 mg/dL (0-40)
[2023-12-30 09:54] LABS: Direct LDL Cholesterol 51.15 mg/dL (100-129)
[2023-12-30 09:57] LABS: Free T4 (Free Thyroxine) 0.98 ng/dl (0.78-2.19)
[2023-12-30 10:03] LABS: Hemoglobin A1C 6.8 % (4.0-6.0)
[2023-12-30 10:13] LABS: Thyroid Stimulating Hormone 2.35 uIU/mL (0.465-4.68)
== END 2023-12-30 23:59 | disposition home or self-care (01) ==
LOC: LAB 08:37
PROVIDERS: Nurse Practitioner Family; PCP Nurse Practitioner Family; Visit Provider Internal Medicine
DX: I73.9 Peripheral vascular disease, unspecified; J44.9 Chronic obstructive pulmonary disease, unspecified; E11.9 Type 2 diabetes mellitus without complications; I25.10 Atherosclerotic heart disease of native coronary artery without angina pectoris
CPT/HCPCS: 36415; 80048; 80061; 80076; 83036; 83735; 84439; 84443; 85025

== ENCOUNTER 2024-01-30 07:50 | Day surgery (SDC) | payer MEDICARE, MEDICAID, SELFPAY ==
[2024-01-30] VITALS (10 sets, daily range): BP systolic 132–152; BP diastolic 60–99; PULSE 59–90; RESP 14–18; TEMP 36.6; O2SAT 94–97; BMI 29.7
--- NOTE | 2024-01-30 07:23 | IR_ITS ---
APPROVED REPORT Patient Location: Outpatient PROCEDURES Catheter placement in the right popliteal artery Right popliteal artery antegrade angiogram Intravascular lithotripsy to the right popliteal artery and right superficial femoral artery Drug-coated balloon angioplasty to the right popliteal artery and right superficial femoral artery Post angioplasty antegrade angiogram to the right popliteal artery and right superficial femoral artery INDICATION [place] claudication class III, Calcified peripheral artery disease, Occluded SFA/right popliteal artery Informed consent was obtained prior to the procedure. COMPLICATIONS NONE Estimated Blood Loss: LESS THAN 10 ML TECHNIQUE 1% lidocaine used to anesthetize the left femoral groin. The left femoral artery was accessed via the Seldinger technique. A 6 Faroese sheath was placed in the left femoral artery and a rim catheter was advanced to the distal abdominal aorta cannulating the right common iliac artery. A long advantage wire was placed in the mid right SFA under fluoroscopic guidance. The short 6 Faroese sheath was exchanged for a long 6 Faroese destination sheath. Therapeutic heparin was administered giving a therapeutic ACT. The 035 advantage wire was used to push through the occlusion in the popliteal artery. A trailblazer catheter was then advanced over the wire and the wire was removed and angiography was performed showing the catheter was in the lumen of the popliteal artery. Following this a 5.5 x 60 mm shockwave intravascular lithotripsy device was deployed at 4 and 6 nithin for the 300 pulsations. Following this a 6 mm x 120 mm drug-coated balloon was deployed at 6 nithin for 3 minutes further reducing in treating the stenosis. Excellent angiographic results were obtained. At the end the procedure the apparatus was removed the groin is reprepped closure change sheath was removed and hemostasis was achieved using Perclose device patient was transferred to the postop holding in stable condition IMPRESSION Successful intravascular lithotripsy followed by drug-coated balloon angioplasty to a chronically occluded right SFA/right popliteal artery reducing 100% occlusion to 0% PLAN 1. Continue standard therapy for peripheral artery disease and probably vascular disease 2. Avoidance of tobacco products Electronically signed by : Sohan Stephen MD 01/30/2024 11:15:21
[2024-01-30 09:22] LABS: Basophils # 0.1 K/mm3 (0-0.2); Basophils % 1.2 % (0.1-2.0); Eosinophils # 0.2 K/mm3 (0.0-0.4); Eosinophils % 2.3 % (0.1-12.0); Hematocrit 52.4 % (42.0-52.0); Hemoglobin 17.2 g/dL (14.1-18.0); Lymphocytes # 2.4 K/mm3 (0.7-4.5); Lymphocytes % 30.9 % (10-50); Mean Corpuscular HGB Conc 32.8 g/dL (31.8-35.4); Mean Corpuscular Volume 97.8 fl (80-94); Mean Platelet Volume 8.6 fl (7.4-10.4); Monocytes # 0.5 K/mm3 (0.1-1.0); Monocytes % 6.3 % (1.7-9.3); Neutrophils # 4.6 K/mm3 (1.8-7.8); Neutrophils % 59.3 % (37.0-80.0); Platelet Count 172 K/mm3 (142-424); Red Blood Count 5.36 M/mm3 (4.60-6.20); Red Cell Distribution Width 14.1 % (11.5-17.5); White Blood Count 7.7 K/mm3 (4.8-10.8)
[2024-01-30 09:30] LABS: Blood Urea Nitrogen 13 mg/dl (9-20); Carbon Dioxide 25 mmol/L (22.0-30.0); Chloride 104 mmol/L (98-107); Creatinine Clearance Estimated 86 mL/min (50-200); Estimated Glomerular Filt Rate 96 ml/min (>60); GFR (African American) 116 ML/MIN (>60); Glucose 118 mg/dl (74-100); Sodium 141 mmol/L (136-145)
[2024-01-30] MEDS: diphenhydrAMINE 50MG/ML VIAL 50 MG IV (10:26)
[2024-01-30] MEDS: 0.9 % SODIUM CHLORIDE 500 ML 25 ML IV (10:27)
[2024-01-30] MEDS: HEPARIN 1,000 UNITS/500ML NS (CATH LAB) 3000 UNIT IV (10:27)
[2024-01-30] MEDS: LIDOCAINE 1% 10ML MDV 20 ML IJ (10:27)
[2024-01-30] MEDS: FENTANYL 100MCG/2ML VIAL 50 MCG IV (10:27)
[2024-01-30] MEDS: MIDAZOLAM HCL 1MG/1ML 5ML VIAL 1 MG IV (10:27)
[2024-01-30] MEDS: HEPARIN 1,000 UNITS/ML 10ML VIAL (CATH LAB) 10000 UNIT IV (10:34)
[2024-01-30] MEDS: IOHEXOL-240 100ML BOTTLE 190 ML IV (11:51)
[2024-01-30 13:04] LABS: CATHL Activated Clotting Time 338 SEC (74-125)
== END 2024-01-30 14:00 | disposition home or self-care (01) ==
PROVIDERS: PCP Nurse Practitioner Family; Visit Provider Internal Medicine
DX: I70.223 Atherosclerosis of native arteries of extremities with rest pain, bilateral legs (principal); I77.1 Stricture of artery; I25.118 Atherosclerotic heart disease of native coronary artery with other forms of angina pectoris; I10 Essential (primary) hypertension; J44.9 Chronic obstructive pulmonary disease, unspecified; E78.5 Hyperlipidemia, unspecified; F17.210 Nicotine dependence, cigarettes, uncomplicated; I70.92 Chronic total occlusion of artery of the extremities
CPT/HCPCS: 80048; 85025; 85347; 99152; 99153; C1725; C1760; C1766; C1769; C1894; C2623; C9764; J1644; Q9966

== ENCOUNTER 2024-02-10 10:12 | Outpatient (CLI) | payer MEDICARE, MEDICAID, SELFPAY ==
[2024-02-10 12:29] LABS: Vitamin B12 255 pg/mL (239-931)
[2024-02-10 12:35] LABS: Folate 8.15 ng/mL
== END 2024-02-10 23:59 | disposition home or self-care (01) ==
LOC: LAB 10:13
PROVIDERS: PCP Nurse Practitioner Family; Visit Provider Nurse Practitioner Family
DX: G62.9 Polyneuropathy, unspecified (principal); Z68.29 Body mass index [BMI] 29.0-29.9, adult
CPT/HCPCS: 36415; 82607; 82746

== ENCOUNTER 2024-10-13 10:24 | Outpatient (CLI) | payer MEDICARE, MEDICAID, SELFPAY ==
[2024-10-13 10:55] LABS: Basophils # 0.1 K/mm3 (0-0.2); Basophils % 0.9 % (0.1-2.0); Eosinophils # 0.2 K/mm3 (0.0-0.4); Eosinophils % 1.8 % (0.1-12.0); Hematocrit 51.3 % (42.0-52.0); Hemoglobin 17.1 g/dL (14.1-18.0); Lymphocytes # 2.8 K/mm3 (0.7-4.5); Lymphocytes % 34.1 % (10-50); Mean Corpuscular HGB Conc 33.3 g/dL (31.8-35.4); Mean Corpuscular Hemoglobin 30.8 pg (27.0-31.2); Mean Corpuscular Volume 92.4 fl (80-94); Mean Platelet Volume 9.9 fl (7.4-10.4); Monocytes # 0.7 K/mm3 (0.1-1.0); Neutrophils # 4.4 K/mm3 (1.8-7.8); Platelet Count 166 K/mm3 (142-424); Red Blood Count 5.55 M/mm3 (4.60-6.20); Red Cell Distribution Width 13.5 % (11.5-17.5); White Blood Count 8.2 K/mm3 (4.8-10.8)
[2024-10-13 11:10] LABS: Alanine Aminotransferase 31 U/L (12-78); Albumin Level 4.9 g/dl (3.5-5.0); Alkaline Phosphatase 45 U/L (38-126); Anion Gap 12.2 mEq/L (5-15); Aspartate Amino Transferase 29 U/L (17-59); Bilirubin,Direct 0.1 mg/dl (0.0-0.4); Bilirubin,Indirect 0.2 mg/dL (0.0-0.9); Bilirubin,Total 0.3 mg/dl (0.2-1.3); Bilirubin,Unconjugated 0.2 mg/dL (0.0-1.1); Blood Urea Nitrogen 15 mg/dl (9-20); Calcium 10.2 mg/dl (8.4-10.2); Carbon Dioxide 29 mmol/L (22.0-30.0); Chloride 105 mmol/L (98-107); Chol/HDL Ratio 4.5 (1-3.5); Cholesterol 165 mg/dl (140-200); Estimated Glomerular Filt Rate 96 ml/min (>60); GFR (African American) 116 ML/MIN (>60); Glucose 113 mg/dl (74-100); HDL Cholesterol 37 mg/dl (40-60); Magnesium 1.9 mg/dl (1.6-2.3); Potassium 4.2 mmoL/L (3.5-5.1); Sodium 142 mmol/L (136-145); Total Protein,Serum 7.2 g/dl (6.3-8.2); Triglycerides 232 mg/dl (30-150); VLDL Cholesterol 46 mg/dL (0-40)
[2024-10-13 11:21] LABS: Direct LDL Cholesterol 101.97 mg/dL (100-129)
[2024-10-13 11:22] LABS: NT Pro Brain Natriuretic Pep. < 20.0 pg/mL (0-125)
[2024-10-13 11:26] LABS: Troponin I < 0.01 ng/ml (0.00-0.034)
[2024-10-13 11:27] LABS: Free T4 (Free Thyroxine) 0.94 ng/dl (0.78-2.19)
[2024-10-13 11:40] LABS: Thyroid Stimulating Hormone 1.45 uIU/mL (0.465-4.68)
== END 2024-10-13 23:59 | disposition home or self-care (01) ==
LOC: LAB 10:25
PROVIDERS: PCP Nurse Practitioner Family; Visit Provider Nurse Practitioner Family
DX: I10 Essential (primary) hypertension (principal); I25.118 Atherosclerotic heart disease of native coronary artery with other forms of angina pectoris; N52.9 Male erectile dysfunction, unspecified; E78.2 Mixed hyperlipidemia; I73.9 Peripheral vascular disease, unspecified; Z72.0 Tobacco use; J44.9 Chronic obstructive pulmonary disease, unspecified; R06.00 Dyspnea, unspecified
CPT/HCPCS: 36415; 80048; 80061; 80076; 83735; 83880; 84439; 84443; 84484; 85025

== ENCOUNTER 2024-12-01 08:12 | Outpatient (CLI) | payer MEDICARE, MEDICAID, SELFPAY ==
--- NOTE | 2024-12-01 08:14 | CT_ITS ---
FINAL REPORT CLINICAL HISTORY: PAD,claudication COMPARISON: 04/23/2022 FINDINGS: CT ABDOMEN, CT PELVIS, CTA ABDOMEN, CTA PELVIS AND CTA LOWER EXTREMITY RUNOFF TECHNIQUE: Thin section axial CT with IV contrast supplemented with 3D MIP reconstruction under CT Angiogram protocol This study was performed with techniques to keep radiation doses as low as reasonably achievable, (ALARA). Individualized dose reduction techniques using automated exposure control or adjustment of mA and/or kV according to the patient's size were employed. FINDINGS: CT ANGIOGRAM ABDOMEN AND PELVIS: The abdominal aorta shows moderate diffuse plaque disease. There are presumed stents in the common iliac arteries. Mild in-stent stenosis is noted. The external iliac arteries are widely patent. There is mild bilateral renal artery stenosis. Moderate celiac artery stenosis measures approximately 50%. There is mild SMA stenosis of approximately 40%. The ANNETTE is widely patent CTA RIGHT LOWER EXTREMITY: Femoral and popliteal vessels show moderate diffuse plaque disease without critical stenosis. There is three-vessel runoff of the calf. CTA LEFT LOWER EXTREMITY: The femoral-popliteal vessels are widely patent. There is mild scattered calcified plaque disease. There is three-vessel runoff of the distal calf. Abdomen: There is an enlarging enhancing mass in the inferior spleen measuring 3 cm which previously measured 2.4 cm. Given the interval slow growth, benign etiology is favored such as hemangioma. There is an 8 mm hypodense lesion in the left hepatic lobe, likely cyst and stable from the previous exam. Remaining solid organs are normal. Cholelithiasis is noted. The bowel is unremarkable. Pelvis: The appendix is normal. Sigmoid diverticulosis is noted. There is asymmetric enlargement of the right prostate which is new from the prior exam. Recommend urologic follow-up for further assessment. IMPRESSION: Mild common iliac artery in-stent stenosis without critical inflow disease. Mild diffuse PVD without significant stenosis or occlusion of the lower extremity vasculature. Asymmetric enlargement of the right prostate, new from previous exam. Recommend urologic follow-up. Incidental cholelithiasis. Reviewed, Interpreted and Dictated by Chaim Ward MD Transcribed by Cici Dupont Authenticated and [facility]
[2024-12-01 08:34] LABS: Blood Urea Nitrogen 12 mg/dl (9-20); Estimated Glomerular Filt Rate 84 ml/min (>60); GFR (African American) 101 ML/MIN (>60)
[2024-12-01] MEDS: IOPAMIDOL-370 (76%);100ML BOTTLE 20 ML IV (09:10)
[2024-12-01] MEDS: 0.9 % SODIUM CHLORIDE 50 ML VIAL IV ×2 (09:10)
[2024-12-01] MEDS: IOPAMIDOL-370 (76%);100ML BOTTLE 100 ML IV (09:10)
[2024-12-01] MEDS: SODIUM CHLORIDE 0.9% 10ML SYR (RAD ONLY) 10 ML IV (09:10)
[2024-12-01 17:46] LABS: Prostate Specific Ag Screen 23.3 ng/ml (0.0-4.0)
== END 2024-12-01 23:59 | disposition home or self-care (01) ==
PROVIDERS: Physician Assistant; PCP Nurse Practitioner Family; Visit Provider Nurse Practitioner Family
DX: I73.9 Peripheral vascular disease, unspecified (principal); M79.604 Pain in right leg; M79.605 Pain in left leg; I10 Essential (primary) hypertension; Z12.5 Encounter for screening for malignant neoplasm of prostate; N40.0 Benign prostatic hyperplasia without lower urinary tract symptoms
CPT/HCPCS: 36415; 75635; 82565; 84520; G0103; Q9967

== ENCOUNTER 2024-12-13 10:00 | Outpatient (CLI) | payer MEDICARE, MEDICAID, SELFPAY ==
[2024-12-13 10:49] LABS: Blood Urea Nitrogen 14 mg/dl (9-20); Estimated Glomerular Filt Rate 96 ml/min (>60); GFR (African American) 116 ML/MIN (>60)
[2024-12-14 08:43] LABS: PSA, Free 3.43 ng/mL; Prostate Specific Ag 24.6 ng/mL (0.0-4.0)
== END 2024-12-13 23:59 | disposition home or self-care (01) ==
LOC: LAB 10:01
PROVIDERS: PCP Nurse Practitioner Family; Visit Provider Urology
DX: N40.2 Nodular prostate without lower urinary tract symptoms (principal); Z12.5 Encounter for screening for malignant neoplasm of prostate
CPT/HCPCS: 36415; 82565; 84153; 84154; 84520

== ENCOUNTER 2025-01-11 07:14 | Outpatient (CLI) | payer MEDICARE, MEDICAID, SELFPAY ==
--- NOTE | 2025-01-11 | CA_ITS ---
APPROVED REPORT Exam: Pharmacologic Technologist: Vanessa Del Valle Ht: 5 ft 7 in Wt: 201 lbs BSA: 2.03 m2 HR: 67 bpm BP: 137/76 mmHg Stress Test Details Test: Lexiscan HR Resting HR: 67 bpm Max Heart Rate (APMHR): 151.437005 bpm Max HR Achieved: 78 bpm Target HR (85% APMHR): 128.218318 bpm % of APMHR: 51.66 Recovery HR: 76 bpm BP Resting BP: 137.0/76.0 mmHg Max BP: 147.0/66.0 mmHg Recovery BP: 130.0/71.0 mmHg ECG Resting ECG: Sinus rhythm, PVC Stress ECG Conclusion Symptoms: Dyspnea Arrhythmias/Ectopy: PVC ST-T Changes: Less than [address] depression Conclusion: EKG unremarkable due to Lexiscan infusion. Electronically signed by : Lori Sanders MD 01/11/2025 21:25:14
--- NOTE | 2025-01-11 07:30 | NM_ITS ---
APPROVED REPORT Exam: Nuclear Stress Test Indication: SOB, Fatigue, HTN, High cholesterol, Tobacco use, CAD Patient Location: Outpatient Stress Tech: Vanessa Del Valle NM Tech:Luz Marina Blair, ARRT, RT (R)(N) Ht: 5 ft 7 in Wt: 200 lbs HR: 65 bpm BP: 137/76 mmHg BSA: 2.02 m2 TID: 1.11 BMI: 31.3 History: SOB, Fatigue, HTN, High cholesterol, Tobacco use, CAD Procedure: Patient received 0.4 mg of intravenous Lexiscan, resting heart rate 65 bpm, resting blood pressure 137/76 mmHg, with Lexiscan maximum heart rate achieved was 88 bpm which is % of the maximum predicted heart rate and blood pressure was 147/66 mmHg. With Lexiscan, patient denied any complaint of chest pain. Cardiac Stress and Resting SPECT Images: Cardiac Stress and Resting SPECT images were obtained using technetium 99m Myoview 32.0 mCi stress and 10.31 mCi at rest. Resting and stress imaging in supine and prone positions demonstrate a large sized, moderate, predominantly fixed perfusion defect in the inferior and septal LV mcdowell. There is a small region of surrounding reversibility towards the distal inferior LV wall. Gated imaging demonstrates low normal LV systolic function. There is mild hypokinesis of the inferior LV wall. LVEF is calculated at 50%. Conclusion: Large sized, moderate, predominantly fixed perfusion defect in the inferior and septal LV mcdowell. There is a small region of surrounding reversibility towards the distal inferior LV wall. Findings are suggestive of partial reversible ischemia. Gated imaging demonstrates low normal LV systolic function. There is mild hypokinesis of the inferior LV wall. LVEF is calculated at 50%. Electronically signed by : Lori Sanders MD 01/11/2025 21:16:56
[2025-01-11] MEDS: REGADENOSON 0.4MG/5ML SYRINGE 0.4 MG IV (08:52)
[2025-01-11] MEDS: ISOTOPE MYOVIEW (PER STUDY) 1 DOSE IV (08:52)
[2025-01-11] MEDS: SODIUM CHLORIDE 0.9% 10ML SYR (RAD ONLY) 10 ML IV ×2 (08:52)
== END 2025-01-11 23:59 | disposition home or self-care (01) ==
LOC: RAD 07:15
PROVIDERS: PCP Nurse Practitioner Family; Visit Provider Nurse Practitioner Family
DX: I25.10 Atherosclerotic heart disease of native coronary artery without angina pectoris (principal); R06.02 Shortness of breath; R53.83 Other fatigue
CPT/HCPCS: 78452; 93017; 93018; A9502; J2785

== ENCOUNTER 2025-02-11 08:18 | Day surgery (SDC) | payer MEDICARE, MEDICAID, SELFPAY ==
[2025-02-11] VITALS (11 sets, daily range): BP systolic 102–151; BP diastolic 51–86; PULSE 63–73; RESP 16–20; TEMP 37; O2SAT 90–95; BMI 31.9
--- NOTE | 2025-02-11 07:12 | IR_ITS ---
APPROVED REPORT Patient Location: Outpatient Child Daycare Worker: BRYSON Saldana RT (R) PROCEDURES Left heart catheterization Left ventriculogram Selective coronary angiogram Drug-eluting stent deployment to the proximal mid and distal dominant right coronary artery in a contiguous manner INDICATION Angina pectoris, Abnormal Myoview, Coronary artery disease Informed consent was obtained prior to the procedure. COMPLICATIONS NONE Estimated Blood Loss: LESS THAN 10 ML TECHNIQUE One percent lidocaine used to anesthetize the right anterior aspect of the wrist. The right radial artery was accessed via the Seldinger technique. A 6 [place] sheath was placed in the right radial artery. 2.5 mg of Verapamil, 800 mcg of nitroglycerin, 1mg Lidocaine and 5000 U Heparin were given through the arterial sheath. The JL3 catheter was also used to perform left heart catheterization, left ventriculogram and selective coronary angiogram. At the end the diagnostic angiogram therapeutic Was administered giving a therapeutic ACT and the guide catheter was placed in the right coronary artery followed by Choice PT extra-support wire placed distally. A guide liner was inserted and a 4 mm x 18 mm Lj frontier stent was placed in the proximal segment and deployed at 20 nithin. There was impressive difficulty getting the stent past the lesion therefore the guide liner was needed for additional support. Following this an additional 4 mm x 38 mm Lj frontier stent was placed distal to the for stent yet still overlapping and deployed at 16 nithin of balloon was brought back and deployed at 20 nithin to further post dilate match the 2 stents. JOHANN-3 flow was present before and after the procedure. There was an initial attempt to get into the posterior descending artery however after repeat angiography it was decided the vessel should be left alone and not revascularized. Inflow was increased to the posterior descending artery. Then the procedure the apparatus was removed the sheath was removed and hemostasis was achieved using TR banding patient was transferred to the postop porting in stable condition ANGIOGRAPHIC RESULTS The left main artery Normal The left anterior descending artery Has stent in the proximal segment which is widely patent free of in-stent restenosis. There is additional mid vessel 30% tandem stenoses. The circumflex artery Gives rise to large ramus with proximal 30 to 40% mid vessel 30 to 40% stenoses The right coronary artery Large and dominant with a proximal 70% concentric in-stent restenosis in the mid vessel 60 to 70% stenosis. Distally there is 60% stenoses just proximal to a large posterior descending artery. Posterior descending artery is large and widely patent. The posterior lateral branch has an ostial 50% stenosis The GALLAGHER ventriculogram reveals Not performed The left ventricular end-diastolic pressure Not measured IMPRESSION Coronary artery disease as described above Successful drug-eluting stenting of the proximal mid and distal dominant right coronary artery severe tandem disease reduced to 0% with 2 contiguous drug-eluting stents Persistent moderate to severe disease in the distal dominant right coronary artery just proximal to the PDA and posterolateral branch which is best managed medically at this time PLAN 1. Continue Effient and aspirin 2. LDL less than 55 achieved with high intensity statin 3. Avoidance of tobacco products 4. Risk factor modification 5. Cardiac rehabilitation Electronically signed by : Sohan Stephen MD 02/11/2025 12:05:07
[2025-02-11 08:49] LABS: Basophils # 0.1 K/mm3 (0-0.2); Basophils % 0.9 % (0.1-2.0); Eosinophils # 0.2 Kmm3 (0.0-0.4); Eosinophils % 2.5 % (0.1-12.0); Hematocrit 49.7 % (42.0-52.0); Hemoglobin 16.5 g/dL (14.1-18.0); Immature Granulocytes # 0.02 10^3uL; Immature Granulocytes % 0.3 %; Lymphocytes # 2.5 K/mm3 (0.7-4.5); Lymphocytes % 36.7 % (10-50); Mean Corpuscular HGB Conc 33.2 g/dL (31.8-35.4); Mean Corpuscular Volume 93.4 fl (80-94); Mean Platelet Volume 10.3 fl (7.4-10.4); Monocytes # 0.6 K/mm3 (0.1-1.0); Monocytes % 9.5 % (1.7-9.3); Neutrophils # 3.4 K/mm3 (1.8-7.8); Neutrophils % 50.1 % (37.0-80.0); Nucleated Red Blood Cells # 0 10^3/uL; Nucleated Red Blood Cells % 0 %; Platelet Count 164 K/mm3 (142-424); Red Blood Count 5.32 M/mm3 (4.60-6.20); Red Cell Distribution Width 12.7 % (11.5-17.5); Red Cell Distribution Width-SD 43.7 fL; White Blood Count 6.8 K/mm3 (4.8-10.8)
[2025-02-11 09:03] LABS: Anion Gap 10.4 mEq/L (5-15); Blood Urea Nitrogen 14 mg/dl (9-20); Calcium 9.6 mg/dl (8.4-10.2); Carbon Dioxide 29 mmol/L (22.0-30.0); Chloride 105 mmol/L (98-107); Creatinine Clearance Estimated 91 mL/min (50-200); Estimated Glomerular Filt Rate 96 ml/min (>60); GFR (African American) 116 ML/MIN (>60); Glucose 113 mg/dl (74-100); Potassium 4.4 mmoL/L (3.5-5.1); Sodium 140 mmol/L (136-145)
[2025-02-11] MEDS: LIDOCAINE 1% 10ML MDV 10 ML IJ (10:51)
[2025-02-11] MEDS: diphenhydrAMINE 50MG/ML VIAL 50 MG IV (10:51)
[2025-02-11] MEDS: HEPARIN 1,000 UNITS/500ML NS (CATH LAB) 3000 UNIT IV (10:51)
[2025-02-11] MEDS: VERAPAMIL 2.5MG/ML 2ML VIAL 2.5 MG IV (10:51)
[2025-02-11] MEDS: 0.9 % SODIUM CHLORIDE 500 ML 25 ML IV (10:51)
[2025-02-11] MEDS: HEPARIN 1,000 UNITS/ML 10ML VIAL (CATH LAB) 5000 UNIT IV ×2 (10:52→10:54)
[2025-02-11] MEDS: NITROGLYCERIN 800MCG/8ML SYR (CATH LAB) 800 MCG IA (10:52)
[2025-02-11] MEDS: FENTANYL 100MCG/2ML VIAL 50 MCG IV (11:25)
[2025-02-11] MEDS: MIDAZOLAM HCL 1MG/ML 5ML VIAL 1 MG IV (11:25)
--- NOTE | 2025-02-11 11:32 | SUR.PHASEII ---
patient unable to take statins/refuses due to side effects
[2025-02-11] MEDS: IOPAMIDOL-370 (76%);100ML BOTTLE 125 ML IV (15:56)
[2025-02-11 15:57] LABS: CATHL Activated Clotting Time 298 SEC (74-125)
== END 2025-02-11 14:38 | disposition home or self-care (01) ==
PROVIDERS: PCP Nurse Practitioner Family; Visit Provider Internal Medicine
PROC: 4A023N7 Measurement of Cardiac Sampling and Pressure, Left Heart, Percutaneous Approach (ICD-10-PCS; CPT 93452; principal; 2025-02-11 09:00)
DX: I25.119 Atherosclerotic heart disease of native coronary artery with unspecified angina pectoris (principal); T82.855A Stenosis of coronary artery stent, initial encounter; R93.1 Abnormal findings on diagnostic imaging of heart and coronary circulation; R53.83 Other fatigue; R06.02 Shortness of breath; I10 Essential (primary) hypertension; E78.5 Hyperlipidemia, unspecified; I70.213 Atherosclerosis of native arteries of extremities with intermittent claudication, bilateral legs; R40.0 Somnolence; G58.9 Mononeuropathy, unspecified; H90.5 Unspecified sensorineural hearing loss; F17.210 Nicotine dependence, cigarettes, uncomplicated; Z95.5 Presence of coronary angioplasty implant and graft; Z79.82 Long term (current) use of aspirin; Z79.899 Other long term (current) drug therapy; Y84.8 Other medical procedures as the cause of abnormal reaction of the patient, or of later complication, without mention of misadventure at the time of the procedure; Z88.8 Allergy status to other drugs, medicaments and biological substances
CPT/HCPCS: 93458; C9600; 80048; 85025; 85347; 92928; 99152; 99153; C1725; C1769; C1874; J1200; J1644; J2003; J3010; J7040; Q9967

== ENCOUNTER 2025-03-05 10:08 | Outpatient (CLI) | payer MEDICARE, MEDICAID, SELFPAY ==
--- OUTSIDE RECORDS SUMMARY | 2025-03-05 10:12 | XMS_ITS | Encounter Summary ---
Author Organization Healthcare Address [address] [place] [address] Care Team Providers Care Integration Software Developer Name Role Phone Chelsie Pinedo FOAMITE MIXER Primary Care Provider [phone]- [phone] Encounter Details Date Type Department Care Team (Late st Contact Info) Description 01/01/2022 Community [facility] Community Practice [address] [place] [address] Chelsie Pinedo APRN [address] [place] [address] Pain of both shoulder joints (Primary Dx); Arthralgia of both knees Social History Tobacco Use Types Packs/Day Years Used Date Smoking Tobacco: Never Assessed Sex and Gender Information Value Date Recorded Sex Assigned at Not on file Legal Sex Male 10:46 AM EST Gender Identity Not on file Sexual Orientation Not on file documented as of this encounter Plan of Treatment Not on file documented as of this encounter Visit Diagnoses Diagnosis Pain of both shoulder joints- Primary Arthralgia of both knees documented in this encounter Care Teams Integration Software Developer Relationship Specialty Start Date End Date Chelsie Pinedo APRN [address] [place] [address] PCP - General 09/15/20 documented as of this encounter
--- OUTSIDE RECORDS SUMMARY | 2025-03-05 10:12 | XMS_ITS | Encounter Summary ---
Author Organization Healthcare Address [address] [place] [address] Care Team Providers Care Shear Helper Name Role Phone Chelsie Pinedo WELL DRILLER Primary Care Provider [phone]- [phone] Encounter Details Date Type Department Care Team (Late st Contact Info) Description 12/25/2021 Community [facility] Community Practice [address] [place] [address] Chelsie Pinedo APRN [address] [place] [address] Pain of both shoulder joints (Primary Dx) Social History Tobacco Use Types Packs/Day Years [...] Diagnosis Pain of both shoulder joints- Primary documented in this encounter Care Teams Shear Helper Relationship Specialty Start Date End Date Chelsie Pinedo APRN [address] [place] [address] PCP - General 09/15/20 documented as of this encounter
--- OUTSIDE RECORDS SUMMARY | 2025-03-05 10:12 | XMS_ITS | Data Portability ---
Author Organization [facility] Address [address] [place] [address] Care Team Providers Care Associate Veterinarian Name Role Phone YOSSICHRISTINE Primary Care Provider DEXTER POLANCO Referring Provider Assessment No assessment recorded. Plan of Treatment Reminders Order Date Submit Date Provider Last Modified By Organization Details Last Modified Time Details Appointments None recorded. Lab amylase + lipase, serum 2023 024 [facility], [address], [place] [address], [place], [address], 4 08:10:15 CBC w/ auto diff 2023 024 [facility], [address], [place] [address], [place], [address], 4 08:10:13 CMP, serum or plasma 2023 024 [facility], [address], [place] [address], [place], [address], 4 08:10:14 Referral orthopedic surgeon referral 2021 022 BHUMI Mota MD, [address] [place] [address] , [place], [address], 2 10:36:39 Procedures None recorded. Surgeries None recorded. Imaging None recorded. Medication Orders simethicone 80 mg chewable tablet 2023 024 [facility] 642, [address], [address], 11:36:40 Patient TargetsNo targets recorded. Patient InstructionsNo instructions recorded. Reason for Referral Orthopedic Surgeon Referral for Pain of bilateral hip joints Referring Physician: Christine Pinedo, Family Medicine, Encounter Date: 04/15/2022 Results Created Date Observation Date Name Description Value Unit Range Abnormal Flag Note LastModifiedBy Organization Detail LastModifiedTime 09/30/19 24 10/01/2023 CBC WITH DIFFE RENTI AL/PL ATELE T WBC 7.6 x10e3 /uL 3.4-10 .8 Not Available [facility] ([facility]) [address] [place], [address], 10/01/2023 08:10:13 09/30/19 24 10/01/2023 CBC WITH DIFFE RENTI AL/PL ATELE T RBC 5.52 x10e6 /uL 4.14-5 .80 Not Available [facility] ([facility]) [address] [place], [address], 10/01/2023 08:10:13 09/30/19 24 10/01/2023 CBC WITH DIFFE RENTI AL/PL ATELE T hemoglobin 16.9 g/dL 13.0-1 7.7 Not Available [facility] ([facility]) [address] [place], [address], 10/01/2023 08:10:13 09/30/19 24 10/01/2023 CBC WITH DIFFE RENTI AL/PL ATELE T hematocrit 48.6 % 37.5-5 1.0 Not Available [facility] ([facility]) [address] [place], [address], 10/01/2023 08:10:13 09/30/19 24 10/01/2023 CBC WITH DIFFE RENTI AL/PL ATELE T MCV 88 fL 79-97 Not Available [facility] ([facility]) [address] [place], [address], 10/01/2023 08:10:13 09/30/19 24 10/01/2023 CBC WITH DIFFE RENTI AL/PL ATELE T MCH 30.6 pg 26.6-3 3.0 Not Available [facility] ([facility]) [address] [facility], [place], [address], 10/01/2023 08:10:13 09/30/19 24 10/01/2023 CBC WITH DIFFE RENTI AL/PL ATELE T MCHC 34.8 g/dL 31.5-3 5.7 Not Available [facility] ([facility]) [address] [facility], [place], [address], 10/01/2023 08:10:13 09/30/19 24 10/01/2023 CBC WITH DIFFE RENTI AL/PL ATELE T RDW 12.5 % 11.6-1 5.4 Not Available [facility] ([facility]) [address] [facility], [place], [address], 10/01/2023 08:10:13 09/30/19 24 10/01/2023 CBC WITH DIFFE RENTI AL/PL ATELE T platelets 175 x10e3 /uL 150-45 0 Not Available [facility] ([facility]) [address] [facility], [place], [address], 10/01/2023 08:10:13 09/30/19 24 10/01/2023 CBC WITH DIFFE RENTI AL/PL ATELE T neutrophils 51 % not estab. Not Available [facility] ([facility]) [address] [facility], [place], [address], 10/01/2023 08:10:13 09/30/19 24 10/01/2023 CBC WITH DIFFE RENTI AL/PL ATELE T lymphs 38 % not estab. Not Available [facility] ([facility]) [address] [place], [address], 10/01/2023 08:10:13 09/30/19 24 10/01/2023 CBC WITH DIFFE RENTI AL/PL ATELE T monocytes 8 % not estab. Not Available [facility] ([facility]) [address] [facility], [place], [address], 10/01/2023 08:10:13 09/30/19 24 10/01/2023 CBC WITH DIFFE RENTI AL/PL ATELE T eos 2 % not estab. Not Available [facility] ([facility]) [address] [facility], [place], [address], 10/01/2023 08:10:13 09/30/19 24 10/01/2023 CBC WITH DIFFE RENTI AL/PL ATELE T basos 1 % not estab. Not Available [facility] ([facility]) [address] [facility], [place], [address], 10/01/2023 08:10:13 09/30/19 24 10/01/2023 CBC WITH DIFFE RENTI AL/PL ATELE T immature cells ELEMENTARY CLASSROOM TEACHER Not Available [facility] ([facility]) [address] [facility], [place], [address], 10/01/2023 08:10:13 09/30/19 24 10/01/2023 CBC WITH DIFFE RENTI AL/PL ATELE T neutrophils (absolute) 3.8 x10e3 /uL 1.4-7. 0 Not Available [facility] ([facility]) [address] [place], [address], 10/01/2023 08:10:13 09/30/19 24 10/01/2023 CBC WITH DIFFE RENTI AL/PL ATELE T lymphs (absolute) 2.9 x10e3 /uL 0.7-3. 1 Not Available [facility] ([facility]) [address] [place], [address], 10/01/2023 08:10:13 09/30/19 24 10/01/2023 CBC WITH DIFFE RENTI AL/PL ATELE T monocytes(ab solute) 0.6 x10e3 /uL 0.1-0. 9 Not Available [facility] ([facility]) [address] [facility], [place], [address], 10/01/2023 08:10:13 09/30/19 24 10/01/2023 CBC WITH DIFFE RENTI AL/PL ATELE T eos (absolute) 0.2 x10e3 /uL 0.0-0. 4 Not Available [facility] ([facility]) [address] [facility], [place], [address], 10/01/2023 08:10:13 09/30/19 24 10/01/2023 CBC WITH DIFFE RENTI AL/PL ATELE T baso (absolute) 0.1 x10e3 /uL 0.0-0. 2 Not Available [facility] ([facility]) [address] [facility], [place], [address], 10/01/2023 08:10:13 09/30/19 24 10/01/2023 CBC WITH DIFFE RENTI AL/PL ATELE T immature granulocytes 0 % not estab. Not Available [facility] ([facility]) [address] [facility], [place], [address], 10/01/2023 08:10:13 09/30/19 24 10/01/2023 CBC WITH DIFFE RENTI AL/PL ATELE T immature grans (abs) 0.0 x10e3 /uL 0.0-0. 1 Not Available [facility] ([facility]) [address] [facility], [place], [address], 10/01/2023 08:10:13 09/30/19 24 10/01/2023 CBC WITH DIFFE RENTI AL/PL ATELE T NRBC ELEMENTARY CLASSROOM TEACHER Not Available [facility] ([facility]) [address] [facility], [place], [address], 10/01/2023 08:10:13 09/30/19 24 10/01/2023 CBC WITH DIFFE SINAN AL/PL ATELE T hematology comments: ELEMENTARY CLASSROOM TEACHER Not Available [facility] ([facility]) [address] [facility], [place], [address], 10/01/2023 08:10:13 09/30/19 24 10/01/2023 COMP. METAB OLIC PANEL (14) glucose 125 mg/dL 70-99 above high normal Not Available [facility] ([facility]) [address] [facility], [place], [address], 10/01/2023 08:10:14 09/30/19 24 10/01/2023 COMP. METAB OLIC PANEL (14) BUN 14 mg/dL 8-27 Not Available [facility] ([facility]) [address] [facility], [place], [address], 10/01/2023 08:10:14 09/30/19 24 10/01/2023 COMP. METAB OLIC PANEL (14) creatinine 0.91 mg/dL 0.76-1 .27 Not Available [facility] ([facility]) [address] [facility], [place], [address], 10/01/2023 08:10:14 09/30/19 24 10/01/2023 COMP. METAB OLIC PANEL (14) eGFR 92 mL/mi n/1.7 3 >59 Not Available [facility] ([facility]) [address] [facility], [place], [address], 10/01/2023 08:10:14 09/30/19 24 10/01/2023 COMP. METAB OLIC PANEL (14) BUN/creatini ne ratio 15 10-24 Not Available [facility] ([facility]) [address] [facility], [place], [address], 10/01/2023 08:10:14 09/30/19 24 10/01/2023 COMP. METAB OLIC PANEL (14) sodium 140 mmol/ L 134-14 4 Not Available [facility] ([facility]) [address] [place], [address], 10/01/2023 08:10:14 09/30/19 24 10/01/2023 COMP. METAB OLIC PANEL (14) potassium 4.1 mmol/ L 3.5-5. 2 Not Available [facility] ([facility]) [address] [place], [address], 10/01/2023 08:10:14 09/30/19 24 10/01/2023 COMP. METAB OLIC PANEL (14) chloride 102 mmol/ L 96-106 Not Available [facility] ([facility]) [address] [place], [address], 10/01/2023 08:10:14 09/30/19 24 10/01/2023 COMP. METAB OLIC PANEL (14) carbon dioxide, total 24 mmol/ L 20-29 Not Available [facility] ([facility]) [address] [place], [address], 10/01/2023 08:10:14 09/30/19 24 10/01/2023 COMP. METAB OLIC PANEL (14) calcium 9.8 mg/dL 8.6-10 .2 Not Available [facility] ([facility] [address] [facility] [place], [address], 10/01/2023 08:10:14 09/30/19 24 10/01/2023 COMP. METAB OLIC PANEL (14) protein, total 7.1 g/dL 6.0-8. 5 Not Available [facility] ([facility]) [address] [place], [address], 10/01/2023 08:10:14 09/30/19 24 10/01/2023 COMP. METAB OLIC PANEL (14) albumin 4.7 g/dL 3.9-4. 9 Not Available [facility] ([facility] [address] [facility] [place], [address], 10/01/2023 08:10:14 09/30/19 24 10/01/2023 COMP. METAB OLIC PANEL (14) globulin, total 2.4 g/dL 1.5-4. 5 Not Available [facility] ([facility]) [address], [place], [address], 10/01/2023 08:10:14 09/30/19 24 10/01/2023 COMP. METAB OLIC PANEL (14) A/G ratio 2.0 1.2-2. 2 Not Available [facility] ([facility] [address] [facility] [place], [address], 10/01/2023 08:10:14 09/30/19 24 10/01/2023 COMP. METAB OLIC PANEL (14) bilirubin, total 0.4 mg/dL 0.0-1. 2 Not Available [facility] ([facility]) [address] [facility], [place], [address], 10/01/2023 08:10:14 09/30/19 24 10/01/2023 COMP. METAB OLIC PANEL (14) alkaline phosphatase 63 IU/L 44-121 Not Available [facility] [address] [facility] [place], [address], 10/01/2023 08:10:14 09/30/19 24 10/01/2023 COMP. METAB OLIC PANEL (14) AST (SGOT) 20 IU/L 0-40 Not Available [facility] ([facility]) [address] [facility] [place], [address], 10/01/2023 08:10:14 09/30/19 24 10/01/2023 COMP. METAB OLIC PANEL (14) ALT (SGPT) 23 IU/L 0-44 Not Available [facility] ([facility]) [address] [facility], [place], [address], 10/01/2023 08:10:14 09/30/19 24 10/01/2023 LUIZ+L IPASE amylase 46 U/L 31-110 Not Available [facility] ([facility]) [address] [facility], [place], [address], 10/01/2023 08:10:15 09/30/19 24 10/01/2023 LUIZ+L IPASE lipase 43 U/L 13-78 Not Available [facility] ([facility]) [address] [facility], [place], [address], 10/01/2023 08:10:15 09/30/19 24 10/01/2023 JORDANA Martins NOTE please note Commen t The date and/o r time of colle ction was not indic ated on the requi sitio n as requi red by state and rody al law. The date of recei pt of the speci men was used as the colle ction date if not suppl ied. Not Available [facility] ([facility]) [address] [facility], [place], [address], 10/01/2023 08:10:15 12/12/19 24 12/12/2023 HbA1c (hemo globi n A1c), blood HbA1C % Not Available [address], [address], 10/02/2023 08:17:06 05/16/2005/16/2023 XR, knee No observ ation record ed. [facility] [address], [place], [place], [address], 05/20/2023 10:37:37 05/16/2005/15/2023 US, doppl er echoc ardio gram No observ ation record ed. [facility] [address], [place], [address], 05/20/2023 10:35:09 05/19/20 23 05/15/2023 cardi ac stres s test No observ ation record ed. [facility] [address], [place], [address], 05/20/2023 10:32:43 05/19/20 23 05/15/2023 NM, myoca rdial perfu sebastian scan, w/ stres s No observ ation record ed. [facility] [address], [place], [address], 05/20/2023 10:32:32 07/08/20 23 07/01/2023 XR, knee No observ ation record ed. [facility] [address], [place], [address], 07/10/2023 09:18:47 01/02/20 24 12/29/2023 US, echoc ardio gram No observ ation record ed. [facility] [address], [place], [address], 01/05/2024 10:04:40 12/02/1912/01/2024 CT, angio gram, abdom en, w/ contr ast No observ ation record ed. [place] [facility] [address], [place], [address], 12/02/2024 10:19:18 01/12/2001/11/2025 NM, myoca rdial perfu sebastian scan, w/ stres s No observ ation record ed. [facility] [address], [place], [address], 01/14/2025 09:42:10 01/12/20 25 01/11/2025 cardi ac stres s test No observ ation record ed. [facility] [address], [place], [address], 01/14/2025 09:42:11 Result Notes None recorded. Problems Name Problem SNOMED Code Status Onset Date Resolution Date Notes Provider Name and Address Organization Details Recorded Time Hypercholestero lemia 29454064 Active 2023 Christine Pinedo, SERVICE CONSULTANT [address], [place], [address], [place] - [facility] 4 11:35:10 Problem Notes None recorded. Procedures Surgical History Date Name Laterality Status Provider Name and Address Organization Details Recorded Time insertion of stent into vein completed Nadine Stears [place] - [facility] 024 11:04:57 Cardiac Cath completed Nadine Stears [place] - [facility] 09/30/2023 11:05:06 Imaging Results None recorded. Procedure Notes None recorded. Medical Equipment None Reported. Allergies No known drug allergies Medications Name Sig Start Date Stop Date Status Note LastModified by Organization Details LastModified Time losartan 50 mg tablet TAKE 1 TABLET BY MOUTH ONCE DAILY 09/30 completed Not Available Not Available Not Available atorvasta tin 40 mg tablet TAKE 1 TABLET BY MOUTH ONCE DAILY active Not Available Not Available No t Available prednison e 20 mg tablet TAKE 1 TABLET BY MOUTH TWICE DAILY WITH FOOD 04/15 completed Not Available Not Available Not Available naproxen 250 mg tablet TAKE 1 TABLET BY MOUTH TWICE DAILY NEEDED FOR PAIN 09/30 completed Not Available Not Available Not Available clopidogr el 75 mg tablet TAKE 1 TABLET BY MOUTH ONCE DAILY 09/30 completed Not Available Not Available Not Available sildenafi l 25 mg tablet TAKE 1 TABLET BY MOUTH NEEDED active Not Available Not Available No t Available aspirin 81 mg tablet,de layed release TAKE 1 TABLET BY MOUTH ONCE DAILY active Not Available Not Available No t Available Gas Relief (simethic one) 80 mg chewable tablet CHEW AND SWALLOW 1 TABLET BY MOUTH THREE TIMES DAILY NEEDED FOR BLOATING FOR 3 DAYS active Not Available Not Available No t Available oseltamiv ir 75 mg capsule TAKE 1 CAPSULE BY MOUTH TWICE DAILY 04/15 completed Not Available Not Available Not Available omeprazol e 20 mg capsule,d elayed release take 1 capsule (20 mg) by oral route once daily before a meal for 30 days 11/08 completed omeprazo le 20 mg oral capsule, delayed release( DR/EC);R ecorded Status: Recorded on: 05/02/20 15 8:17AM;U ser: jose g roberto;Est. Completi on: 10/29/19 16;Print ed: 05/02/20 Not Available Not Available Not Available hydrochlo rothiazid e 25 mg tablet TAKE ONE TABLET BY MOUTH ON FRIDAY, AND FRIDAY ONLY active Not Available Not Available No t Available furosemid e 20 mg tablet TAKE 1 TABLET BY MOUTH ONCE DAILY 09/30 completed Not Available Not Available Not Available methylpre dnisolone 4 mg tablets in a dose pack TAKE BY MOUTH DIRECTED ON INSIDE OF PACKAGE 09/30 completed Not Available Not Available Not Available sildenafi l (pulmonar y hypertens ion) 20 mg tablet TAKE 1 TABLET BY MOUTH 1 TIME 30 MINUTES BEFORE SEXUAL ACTIVITY FOR 4 DAYS 04/15 completed Not Available Not Available Not Available Xarelto 2.5 mg tablet TAKE 1 TABLET BY MOUTH TWICE DAILY 09/30 completed Not Available Not Available Not Available Vitals Date Recorded Respiratory rate Body weight Heart rate Body temperature Oxygen saturation Oxygen saturation in Arterial blood by Pulse oximetry Systolic blood pressure Diastolic blood pressure Provider Name and Address Organization Details Last Updated DateTime 4 18 /min 96990.5 1 g 90 /min 98.1 [degF] 94 % 94 % 136 mm[Hg] 78 mm[Hg] Nadine Stuart [place] - [facility] 4 10:59:37 Date Recorded Body weight Body temperature Heart rate Oxygen saturation Oxygen saturation in Arterial blood by Pulse oximetry Respiratory rate Systolic blood pressure Diastolic blood pressure Provider Name and Address Organization Details Last Updated DateTime 2 93205.1 7 g 97.7 [degF] 83 /min 95 % 95 % 18 /min 142 mm[Hg] 80 mm[Hg] Felicia Welch [place] - [facility] 2 14:44:19 Social History Question Answer Notes LastModified by Organizat ion Details LastModified Time Tobacco Smoking Status Current Every Day Smoker Felicia Welch null, [place] - [facility] 04/15/2022 14:47:52 Do You Have An Advance Directive? No Information not available 09/30/2023 Are You Blind Or Do You Have Difficulty Seeing? No Information not available 09/30/2023 What Is Your Level Of Caffeine Consumption? Moderate Information not available 09/30/2023 Are You Deaf Or Do You Have Serious Difficulty Hearing? No Information not available 09/30/2023 What Type Of Diet Are You Following? REGULAR Information not available 09/30/2023 What Is The Highest Grade Or Level Of School You Have Completed Or The Highest Degree You Have Received? [id number] Information not available 09/30/2023 Have There Been Any Changes To Your Family Or Social Situation? No Information no t available 09/30/2023 What Is The Fluoride Status Of Your Home? Unknown Information not available 09/30/2023 Do You Have A Medical Power Of X Ray Physician? No Information not available 09/30/2023 What Was The Date Of Your Most Recent Tobacco Screening? 09/30/2023 Information not available 09/30/2023 What Is Your Current Pack Years? 30ormorepacky ears Information not available 09/30/2023 What Is Your Relationship Status? Single Information not available 09/30/2023 Do You Have Smoke And Carbon Monoxide Detectors In Your Home? Yes Information not available 09/30/2023 At What Age Did You Start Smoking Tobacco? 10 Information not available 04/15/2022 How Much Tobacco Do You Smoke? 1 PPD Information not available 04/15/2022 Has Tobacco Cessation Counseling Been Provided? No Information not available 04/15/2022 How Many Years Have You Smoked Tobacco? 58 Information not available 09/30/2023 Do You Have Difficulty Walking Or Climbing Stairs? No Information not available 09/30/2023 Sex: Male Functional Status Question Answer Note LastModified by Organizat ion Details LastModified Time Do you use any illicit or recreational drugs? No Information not available 09/30/2023 Do you or have you ever used any other forms of tobacco or nicotine? No Information not available 09/30/2023 What is your level of alcohol consumption? None Information not available 09/30/2023 Are you currently employed? No Information not available 09/30/2023 Do you have transportation difficulties? No Information not available 09/30/2023 Are you able to walk? YESWOREST Information not available 09/30/2023 Do you have difficulty doing errands alone? No Information not available 09/30/2023 Are you able to care for yourself? Yes Information not available 09/30/2023 Do you have difficulty dressing or bathing? No Information not available 09/30/2023 What is your exercise level? None Information not available 09/30/2023 Mental Status Question Answer Note LastModified by Organizat ion Details LastModified Time Do you feel stressed (tense, restless, nervous, or anxious, or unable to sleep at night)? [id number] Information not available 09/30/2023 Do you have difficulty concentrating, remembering or making decisions? No Information no t available 09/30/2023 Family History Relationship Description Onset Age of this Age Resolved Age Notes LastModified by Organization Details LastModified Time Father No current problems or disability bstears Not available 09/30 11:03:36 Mother No current problems or disability bstears Not available 09/30 11:03:36 Medical History No medical history recorded. Immunizations Vaccine Type Date Status Note Provider Nam e and Address Organization Details Recorded Time COVID-19, mRNA, LNP-S, PF, 100 mcg/0.5mL dose or 50 mcg/0.25mL dose 08/31/2021 completed Nadine Stears null, [place] - [facility] 09/30/2023 10:54:20 COVID-19 vaccine, vector-nr, rS-Ad26, PF, 0.5 mL 12/13/2020 completed Nadine Stears null, [place] - [facility] 09/30/2023 10:54:20 Past Encounters Encounter ID Performer Location Encounter Start Date Encounter Closed Date Diagnosis/Indication Diagnosis SNOMED-CT Code Diagnosis ICD10 Code Diagnosis Note [id number] Christine Pinedo APRN [address] [address] 04/15/2022 14:14:50 04/15/2022 15:26:48 Peripheral vascular disease 180093251 I73.9 Spoke with cheryle from cardiology , will see dr polanco tomorrow at 830 Pain of bi lateral hip joints 0196311497 5130129 M25.551 Pain of le ft hip joint 4815178221 18418 M25.549 [id number] Christine Pinedo APRN [facility] [address] [place] [address] 09/30/2023 10:38:22 09/30/2023 11:50:50 Abdominal bloating 553220918 R14.0 if symptoms worsen or no improvemen t go to [facility] Abdominal pain 33350534 R10.9 Health Concerns Section Related Observation LastModified by Organization Detai ls LastModified Time None Recorded Concern Status LastModified by Organization Details LastModified Time None Recorded Advance Directives Directive N: Payers Insurance Date Sequence Insurance Name Policy Number Policy Hahn Covered Member ID Hahn Member ID Guarantor Name 09/27/2023 [employer] [place] [facility] (MEDICARE) Aniket Selin Smith [id number] Aniket Selin Smith 04/15/2022 2 [employer] [place] [facility] (MEDICARE) Aniket Selin Smith [id number] Aniket Selin Smith 10/23/2023 2 [place] [facility] - FFS/TRADITIO NAL Aniket Selin Smith [id number] Aniket Selin Smith 09/27/2023 1 [place] Aniket Selin Smith [id number] Aniket Selin Smith Notes Date Note Type Note Provider Name and Address Organization Details Recorded Time 04/15/2022 text/html 66 yr old male presents with occasional dizziness, numbness in right foot and right leg at times. Had a stent placed in left leg per Dr. Polanco in Sep 2021. States he has pain in his bilateral thighs and calves when walking a lot. has seen dr murphy and was given cortizone shots but they did not help. Christine Pinedo APRN [address], [place], [address], [place] - [facility] 04/15/2022 15:06:10 09/30/2023 text/html 68 year old male who presents to the office today with concerns ofabdominal bloating and discomfort-started about 2 weeks ago, pt states some improvement but still feels bloated and cramping. pt states he started on omepazole and symptoms slightly improved. pt states no change in bowel habits Christine Pinedo, SERVICE CONSULTANT [address], [place], [address], [place] - [facility] 09/30/2023 11:42:14
--- OUTSIDE RECORDS SUMMARY | 2025-03-05 10:12 | XMS_ITS | Clinical Summary ---
Author Organization Healthcare Address [address] [id number] Care Team Providers Care Front Desk Supervisor Name Role Phone Chelsie Pinedo BERTA Primary Care Provider [phone] Social History Tobacco Use Types Packs/Day Years Used Date Smoking Tobacco: Never Assessed Sex and Gender Information Value Date Recorded Sex Assigned at Not on file Legal Sex Male 10:46 AM EST Gender Identity Not on file Sexual Orientation Not on file Plan of Treatment Health Maintenance Due Date Last Done Comments [facility]-Depression Screening 1955 [facility]-Hepatitis C Screening 1955 [facility]-Medicare Annual Wellness (AWV) 1955 [facility]-/Child/Adol SDOH Screenings 1955 [facility]- SDOH Screenings 1973 [facility]-Adult SDOH Screenings 1973 [facility]-DTaP,Tdap,and Td Vaccine s (1 - Tdap) 1974 CT Colonography 2000 Colonoscopy 2000 FIT-DNA 2000 FIT 2000 FOBT 2000 Sigmoidoscopy 2000 [facility]-Colorectal Cancer Screening 2000 [facility]-Pneumococcal Vaccine: 50 + Years (1 of 1 - PCV) 2005 [facility]-Zoster Vaccines (1 of 2) 2005 [id number] Vaccine (3 - 2023- season) 2024 08/31/2021, 12/13/2020 [facility]-Influenza Vaccine (Seas[place] n Ended) 2025 [facility]-RSV Vaccine: 60+ Years o r (1 - 1-dose 75+ series) 2030 HPV Vaccines Aged Out No longer eligi ble based on patient's age to complete this topic [facility]-HIB Vaccines Aged Out No longer e ligible based on patient's age to complete this topic [facility]-Hepatitis A Vaccines Aged Out No longer eligible based on patient's age to complete this topic [facility]-IPV Vaccines Aged Out No longer e ligible based on patient's age to complete this topic [facility]-Rotavirus Vaccines Aged Out No lo nger eligible based on patient's age to complete this topic Insurance [employer] [place] [id number] Care Teams Front Desk Supervisor Relationship Specialty Start Date End Date Chelsie Pinedo APRN [address] [place] [id number] PCP - General 09/15/20
[2025-03-05 10:52] LABS: Basophils # 0.1 K/mm3 (0-0.2); Basophils % 0.7 % (0.1-2.0); Eosinophils # 0.2 Kmm3 (0.0-0.4); Eosinophils % 2.7 % (0.1-12.0); Hematocrit 49.4 % (42.0-52.0); Hemoglobin 15.9 g/dL (14.1-18.0); Immature Granulocytes # 0.01 10^3uL; Immature Granulocytes % 0.1 %; Lymphocytes # 2.4 K/mm3 (0.7-4.5); Lymphocytes % 32.3 % (10-50); Mean Corpuscular HGB Conc 32.2 g/dL (31.8-35.4); Mean Corpuscular Hemoglobin 29.8 pg (27.0-31.2); Mean Corpuscular Volume 92.7 fl (80-94); Mean Platelet Volume 10.2 fl (7.4-10.4); Monocytes # 0.6 K/mm3 (0.1-1.0); Monocytes % 7.5 % (1.7-9.3); Neutrophils # 4.2 K/mm3 (1.8-7.8); Neutrophils % 56.7 % (37.0-80.0); Nucleated Red Blood Cells # 0 10^3/uL; Nucleated Red Blood Cells % 0 %; Platelet Count 155 K/mm3 (142-424); Red Blood Count 5.33 M/mm3 (4.60-6.20); Red Cell Distribution Width 12.5 % (11.5-17.5); Red Cell Distribution Width-SD 42.4 fL; White Blood Count 7.4 K/mm3 (4.8-10.8)
[2025-03-05 11:22] LABS: Amphetamine/Metha Screen,Urine Negative ng/ml (<1000)
[2025-03-05 11:23] LABS: Barbiturates Screen,Urine Negative ng/ml (<200)
[2025-03-05 11:24] LABS: Benzodiazepines Screen,Urine Negative ng/ml (<200); Cannabinoid Screen,Urine Negative ng/ml (<50)
[2025-03-05 11:25] LABS: Cocaine Screen,Urine Negative ng/ml (<300)
[2025-03-05 11:26] LABS: Methadone Screen,Urine Negative ng/ml (<300); Phencyclidine Screen,Urine Negative ng/ml (<25)
[2025-03-05 11:27] LABS: Opiate Screen,Urine Negative ng/ml (<300)
[2025-03-05 11:41] LABS: Chloride 106 mmol/L (98-107); Potassium 4.5 mmoL/L (3.5-5.1); Sodium 138 mmol/L (136-145)
[2025-03-05 11:44] LABS: Blood Urea Nitrogen 12 mg/dl (9-20); Estimated Glomerular Filt Rate 96 ml/min (>60); GFR (African American) 116 ML/MIN (>60)
[2025-03-05 11:45] LABS: Anion Gap 7.5 mEq/L (5-15); Calcium 9.7 mg/dl (8.4-10.2); Carbon Dioxide 29 mmol/L (22.0-30.0); Glucose 154 mg/dl (74-100)
== END 2025-03-05 23:59 | disposition home or self-care (01) ==
LOC: LAB 10:11
PROVIDERS: Internal Medicine; PCP Nurse Practitioner Family; Visit Provider Nurse Practitioner Family
DX: I25.10 Atherosclerotic heart disease of native coronary artery without angina pectoris (principal); R93.1 Abnormal findings on diagnostic imaging of heart and coronary circulation; Z72.0 Tobacco use; Z79.891 Long term (current) use of opiate analgesic
CPT/HCPCS: 36415; 80048; 80307; 85025